=== PATIENT | female | born 1935 | race Caucasian/White ===

== ENCOUNTER 2017-04-18 12:08 | Inpatient (IN) | payer MEDICARE, BC ==
--- NOTE | 2017-04-18 12:49 | ER Document Report ---
ED Medical Screen (RME) - General Chief Complaint: Headache Stated Complaint: HEADACHE Time Seen by Provider: 04/18/17 12:34 Mode of Arrival: Wheelchair Information source: Patient, Relative Notes: This is a 81-year-old female with multiple medical problems which include hypertension and prior CVA in 2008 who presents for evaluation of a headache. She states that she developed a sudden dull, frontal headache at about 10:00 this morning while she was at home getting dressed. She was home with her caregiver at the time and she asked her caregiver for Tylenol for her headache. Her caregiver then took her blood pressure and noted it to be 240 systolic. At this point EMS was notified. Patient states that now she feels fine and her headache has resolved. Family states that the patient acted somewhat confused yesterday and then when her headache began today they were concerned that she may be having a TIA. She has a prior history of CVA and residual left-sided weakness from that. Also family states that she has had a left facial droop on and off since her stroke but that for the past 3 days it has been somewhat more pronounced. Patient denies any pain at this time she has no headache, chest pain, abdominal pain. I have greeted and performed a rapid initial assessment of this patient. A comprehensive ED assessment and evaluation of the patient, analysis of test results and completion of the medical decision making process will be conducted by additional ED providers. - Related Data Allergies/Adverse Reactions: erythromycin base [Erythromycin Base] Allergy (Severe, Verified 03/05/14 15:29) cortisone [Cortisone] Allergy (Intermediate, Verified 03/05/14 15:29) Sulfa (Sulfonamide Antibiotics) Allergy (Intermediate, Verified 03/05/14 15:29) diazepam [From Valium] Adverse Reaction (Unknown, Verified 03/05/14 15:29) Delirium Past Medical History - Past Medical History Cardiac Medical History: Reports: Hx Heart Attack - ? YEARS AGO, Hx Hypertension - CONTROLLED WITH MEDS Pulmonary Medical History: Denies: Hx Asthma Neurological Medical History: Reports: Hx Cerebrovascular Accident - 2009 LEFT SIDED WEAKNESS. Denies: Hx Seizures Renal/ Medical History: Denies: Hx Peritoneal Dialysis GI Medical History: Denies: Hx Hepatitis, Hx Hiatal Hernia, Hx Ulcer Infectious Medical History: Denies: Hx Hepatitis Past Surgical History: Reports: Hx Mastectomy - RT BREAST, SIDE IS RESTRICTED. Denies: Hx Hysterectomy, Hx Open Heart Surgery, Hx Pacemaker Physical Exam - Vital signs Vitals: Temp Pulse Resp BP Pulse Ox 98.8 F 59 L 20 210/96 H 97 04/18/17 12:15 04/18/17 12:15 04/18/17 12:15 04/18/17 12:15 04/18/17 12:15 - General General appearance: Appears well In distress: None Notes: Very pleasant and conversant elderly female - Neurological Cognition: Normal Orientation: AAOx4 Notes: Patient has left-sided motor weakness to the upper and lower extremities which she states is her baseline from her prior CVA. Cranial nerves are intact with exception of a slight left-sided facial droop which family states is been present for 3 days. Course - Vital Signs Vital signs: Temp Pulse Resp BP Pulse Ox 98.8 F 59 L 20 210/96 H 97 04/18/17 12:15 04/18/17 12:15 04/18/17 12:15 04/18/17 12:15 04/18/17 12:15
[2017-04-18 13:53] LABS: ABSOLUTE BASOPHILS # (AUTO) 0.1 10^3/uL (0.0-0.2); ABSOLUTE EOSINOPHILS # (AUTO) 0.3 10^3/uL (0.0-0.6); ABSOLUTE LYMPHOCYTES (AUTO) 1.8 10^3/uL (0.5-4.7); ABSOLUTE MONOCYTES (AUTO) 0.7 10^3/uL (0.1-1.4); ABSOLUTE NEUT (AUTO) 4.6 10^3/uL (1.7-8.2); BASOPHILS % (AUTO) 1.2 % (0-2); EOSINOPHILS % (AUTO) 3.8 % (0-6); HEMATOCRIT 42.1 % (36.0-47.0); HEMOGLOBIN 14.4 g/dL (12.0-15.5); HGB HCT DIFFERENCE 1.1; LYMPHOCYTES % (AUTO) 23.6 % (13-45); MEAN CORPUSCULAR HEMOGLOBIN 32.6 pg (27.0-33.4); MEAN CORPUSCULAR HGB CONC 34.3 g/dL (32.0-36.0); MEAN CORPUSCULAR VOLUME 95 fl (80-97); MONOCYTES % (AUTO) 9.8 % (3-13); RED BLOOD COUNT 4.43 10^6/uL (3.72-5.28); RED CELL DISTRIBUTION WIDTH 13.1 % (11.5-14.0); SEGMENTED NEUTROPHILS % (AUTO) 61.6 % (42-78); WHITE BLOOD COUNT 7.4 10^3/uL (4.0-10.5)
[2017-04-18 14:06] LABS: ALANINE AMINOTRANSFERASE 28 U/L (9-52); ALBUMIN 4.3 g/dL (3.5-5.0); ALKALINE PHOSPHATASE 55 U/L (38-126); ANION GAP 11 (5-19); ASPARTATE AMINO TRANSFERASE 22 U/L (14-36); BILIRUBIN,DIRECT 0.2 mg/dL (0.0-0.4); BILIRUBIN,TOTAL 0.5 mg/dL (0.2-1.3); BLOOD UREA NITROGEN 21 mg/dL (7-20); CALCIUM 9.9 mg/dL (8.4-10.2); CARBON DIOXIDE 26 mmol/L (22-30); CHLORIDE 103 mmol/L (98-107); CREATINE KINASE 54 U/L (30-135); GLUCOSE 99 mg/dL (75-110); POTASSIUM 4.3 mmol/L (3.6-5.0); SODIUM 140.4 mmol/L (137-145); TOTAL PROTEIN 7.8 g/dL (6.3-8.2)
[2017-04-18 14:18] LABS: CREATINE KINASE MB 0.91 ng/mL (<4.55); TROPONIN I < 0.012 ng/mL
[2017-04-18] MEDS ORDERED: HYDRALAZINE HCL INJ/PF 20 MG/1 ML SDV IV ONE (14:19)
--- NOTE | 2017-04-18 14:29 | RADIOLOGY REPORT (SQ) ---
EXAM DESCRIPTION: CT HEAD WITHOUT COMPLETED DATE/TIME: 04/18/2017 2:18 pm REASON FOR STUDY: Headache, HTN, prior CVA COMPARISON: None. TECHNIQUE: Axial images acquired through the brain without intravenous contrast. Images reviewed wi th bone, brain and subdural windows. Images stored on PACS. LIMITATIONS: None. FINDINGS: VENTRICLES: Normal size and contour. CEREBRUM: No masses. No hemorrhage. No midline shift. Encephalomalacia right cerebral hemisphere c ompatible with chronic right MCA territory infarction. No evidence for acute infarction. CEREBELLUM: No masses. No hemorrhage. No alteration of density. No evidence for acute infarction. EXTRAAXIAL SPACES: No fluid collections. No masses. ORBITS AND GLOBE: No intra- or extraconal masses. Normal contour of globe without masses. CALVARIUM: No fracture. PARANASAL SINUSES: No fluid or mucosal thickening. SOFT TISSUES: No mass or hematoma. OTHER: No other significant finding. IMPRESSION: LARGE CHRONIC RIGHT MCA TERRITORY INFARCTION. NO CT EVIDENCE OF ACUTE INTRACRANIAL PROC ESS. COMMENT: WAS EXAM PERFORMED WITHIN 24 HOURS UPON ARRIVAL TO FACILITY? Yes. TECHNICAL DOCUMENTATION: JOB ID: [id number]
--- NOTE | 2017-04-18 14:30 | ER Document Report ---
ED General - General Chief Complaint: Headache Stated Complaint: HEADACHE Time Seen by Provider: 04/18/17 12:34 Mode of Arrival: Wheelchair Information source: Patient, Relative Notes: 81 yr old female hx of cva in 2008 with elft sided deficits presents with complaints of headache that occured this morning lasting for 30 minutes with high blood pressure. pt was noted to be confused while having the headache, all symptoms have since resolved - HPI Onset: This morning Onset/Duration: Sudden Quality of pain: No pain Severity: Mild Pain Level: Denies Associated symptoms: Headache, Weakness Exacerbated by: Denies Relieved by: Denies Similar symptoms previously: Yes Recently seen / treated by doctor: Yes - Related Data Allergies/Adverse Reactions: erythromycin base [Erythromycin Base] Allergy (Severe, Verified 03/05/14 15:29) cortisone [Cortisone] Allergy (Intermediate, Verified 03/05/14 15:29) Sulfa (Sulfonamide Antibiotics) Allergy (Intermediate, Verified 03/05/14 15:29) diazepam [From Valium] Adverse Reaction (Unknown, Verified 03/05/14 15:29) Delirium Past Medical History - General Information source: Patient, Relative - Social History Smoking Status: Never Smoker Cigarette use (# per day): No Chew tobacco use (# tins/day): No Smoking Education Provided: No Family History: Reviewed & Not Pertinent Patient has suicidal ideation: No Patient has homicidal ideation: No - Past Medical History Cardiac Medical History: Reports: Hx Heart Attack - ? YEARS AGO, Hx Hypertension - CONTROLLED WITH MEDS Pulmonary Medical History: Denies: Hx Asthma Neurological Medical History: Reports: Hx Cerebrovascular Accident - 2009 LEFT SIDED WEAKNESS. Denies: Hx Seizures Renal/ Medical History: Denies: Hx Peritoneal Dialysis GI Medical History: Denies: Hx Hepatitis, Hx Hiatal Hernia, Hx Ulcer Infectious Medical History: Denies: Hx Hepatitis Past Surgical History: Reports: Hx Mastectomy - RT BREAST, SIDE IS RESTRICTED. Denies: Hx Hysterectomy, Hx Open Heart Surgery, Hx Pacemaker Review of Systems - Review of Systems Notes: PHYSICAL EXAMINATION: GENERAL: Well-appearing, well-nourished and in no acute distress. HEAD: Atraumatic, normocephalic. EYES: Pupils equal round and reactive to light, extraocular movements intact, conjunctiva are normal. ENT: Nares patent, oropharynx clear without exudates. Moist mucous membranes. NECK: Normal range of motion, supple without lymphadenopathy LUNGS: Breath sounds clear to auscultation bilaterally and equal. No wheezes rales or rhonchi. HEART: Regular rate and rhythm without murmurs ABDOMEN: Soft, nontender, nondistended abdomen. No guarding, no rebound. No masses appreciated. Female : deferred Musculoskeletal: Normal range of motion, no pitting or edema. No cyanosis. NEUROLOGICAL: Left facial arm deficits PSYCH: Normal mood, normal affect. SKIN: Warm, Dry, normal turgor, no rashes or lesions noted. Physical Exam - Vital signs Vitals: Temp Pulse Resp BP Pulse Ox 98.8 F 59 L 20 210/96 H 97 04/18/17 12:15 04/18/17 12:15 04/18/17 12:15 04/18/17 12:15 04/18/17 12:15 Course - Re-evaluation Re-evalutation: 04/18/17 14:30 Concern for CVA versus TIA patient is noted to be hypertensive, I will give her hydralazine as she is hypertensive 04/18/17 15:32 Patient's blood pressures improved significantly with medication 04/18/17 16:40 Patient at this time has no symptoms however given her confusion left facial droop left leg drop over the past 2 days I will admit her for an observation. In the IMCU - Vital Signs Vital signs: Temp Pulse Resp BP Pulse Ox 98.8 F 59 L 20 157/73 H 95 04/18/17 12:15 04/18/17 12:15 04/18/17 15:01 04/18/17 15:01 04/18/17 15:01 - Laboratory Result Diagrams: 04/18/17 13:35 04/18/17 13:35 Laboratory results interpreted by me: 04/18/17 13:35 BUN 21 H - Diagnostic Test Radiology reviewed: Image reviewed, Reports reviewed - EKG Interpretation by Me EKG shows normal: Sinus rhythm, [place], Intervals, QRS Complexes Critical Care Note - Critical Care Note Total time excluding time spent on procedures (mins): 31 Comments: 31 minutes of critical care time spent in direct contact evaluating and reevaluating the patient, treating symptoms, reviewing labs and studies and speaking with family and consultants excluding any procedures Discharge - Discharge Clinical Impression: Hypertensive emergency TIA (transient ischemic attack) Qualifiers: Transient cerebral ischemia type: unspecified Qualified Code(s): G45.9 - Transient cerebral ischemic attack, unspecified Condition: Serious Disposition: ADMITTED OBSERVATION Admitting Provider: Hospitalist Unit Admitted: IMCU
[2017-04-18] MEDS ORDERED: 1/2 NORMAL SALINE 1,000 ML IV PRN (16:44)
--- NOTE | 2017-04-18 17:43 | PDOC H&P ---
History of Present Illness Admission Date/PCP: 04/18/17 17:00 IBAN CASTELAN MD History of Present Illness: WARREN FARRIS is a 81 year old female with a history of hypertension and a stroke in 2008 involving the right middle cerebral artery distribution resulting in a chronic left hemiparesis. For the last few days the patient has felt poorly. She has developed an intermittent exaggerated left foot drop and perhaps an exaggerated left facial droop, worsening her pre-existent left hemiparesis. There was also some degree of increased confusion. Today she developed headache and came to the emergency department. By that time, the additional neurologic symptoms had cleared to baseline. She was found to have a blood pressure of 210/106. She was given hydralazine and to the blood pressure corrected to 157/83. Later it came back up to 183/70. CT brain shows the old right middle cerebral artery territory infarct but no acute changes. The patient will be admitted with a diagnosis of TIA for monitoring and for further evaluation and treatment. Past Medical History Cardiac Medical History: Reports: Myocardial Infarction - ? YEARS AGO, Hypertension - CONTROLLED WITH MEDS Pulmonary Medical History: Denies: Asthma Neurological Medical History: Reports: Ischemic CVA - in 2008, R MCA, resulting in L HMP Denies: Seizures Endocrine Medical History: Reports: Diabetes Mellitus Type 2 Malignancy Medical History: Reports: Breast Cancer GI Medical History: Denies: Hepatitis, Hiatal Hernia Hematology: Denies: Anemia, Sickle Cell Disease Past Surgical History Past Surgical History: Reports: Mastectomy - RT BREAST, SIDE IS RESTRICTED Denies: Amputation, Hysterectomy, Pacemaker Social History Smoking Status: Never Smoker Family History Family History: Reviewed & Not Pertinent Parental Family History Reviewed: No Children Family History Reviewed: No Sibling(s) Family History Reviewed.: No Medication/Allergy Home Medications: Amlodipine Besylate [Norvasc 10 mg Tablet] 10 mg PO DAILY 04/10/12 Aspirin [Aspirin 325 mg Tablet] 325 mg PO DAILY 04/10/12 Duloxetine HCl [Cymbalta 20 Mg Capsule.Dr] 60 mg PO DAILY 04/10/12 Metformin HCl [Glucophage Xr] 500 mg PO QAM 04/10/12 Metoprolol Succinate [Toprol-Xl 50 Mg Tab.Sr] 50 mg PO DAILY 04/10/12 Simvastatin [Zocor] 20 mg PO QHS 04/10/12 Solifenacin Succinate [Vesicare] 10 mg PO DAILY 04/10/12 Docusate Sodium [Colace 100 mg Capsule] 100 mg PO BID 03/07/14 Losartan Potassium [Cozaar 25 mg Tablet] 25 mg PO DAILY 03/07/14 Allergies/Adverse Reactions: erythromycin base [Erythromycin Base] Allergy (Severe, Verified 03/05/14 15:29) cortisone [Cortisone] Allergy (Intermediate, Verified 03/05/14 15:29) Sulfa (Sulfonamide Antibiotics) Allergy (Intermediate, Verified 03/05/14 15:29) diazepam [From Valium] Adverse Reaction (Unknown, Verified 03/05/14 15:29) Delirium Review of Systems Constitutional: PRESENT: headache(s). ABSENT: chills, fever(s), weight gain, weight loss Eyes: ABSENT: visual disturbances Ears: ABSENT: hearing changes Cardiovascular: ABSENT: chest pain, dyspnea on exertion, edema, orthropnea, palpitations Respiratory: ABSENT: cough, hemoptysis Gastrointestinal: ABSENT: abdominal pain, constipation, diarrhea, hematemesis, hematochezia, nausea, vomiting Genitourinary: ABSENT: dysuria, hematuria Musculoskeletal: ABSENT: joint swelling Integumentary: ABSENT: rash, wounds Neurological: PRESENT: abnormal gait, confusion, focal weakness. ABSENT: abnormal speech, dizziness, syncope Psychiatric: ABSENT: anxiety, depression, homidical ideation, suicidal ideation Endocrine: ABSENT: cold intolerance, heat intolerance, polydipsia, polyuria Hematologic/Lymphatic: ABSENT: easy bleeding, easy bruising Physical Exam Vital Signs: Temp Pulse Resp BP Pulse Ox 98.8 F 59 L 17 148/114 H 95 04/18/17 12:15 04/18/17 12:15 04/18/17 17:01 04/18/17 17:01 04/18/17 17:01 General appearance: PRESENT: no acute distress Head exam: PRESENT: atraumatic, normocephalic Eye exam: PRESENT: conjunctiva pink, EOMI, PERRLA. ABSENT: scleral icterus Ear exam: PRESENT: normal external ear exam Mouth exam: PRESENT: moist, tongue midline Neck exam: ABSENT: carotid bruit, JVD, lymphadenopathy, thyromegaly Respiratory exam: PRESENT: clear to auscultation jose enrique. ABSENT: rales, rhonchi, wheezes Cardiovascular exam: PRESENT: RRR. ABSENT: diastolic murmur, rubs, systolic murmur Pulses: PRESENT: normal dorsalis pedis pul Vascular exam: PRESENT: normal capillary refill GI/Abdominal exam: PRESENT: normal bowel sounds, soft. ABSENT: distended, guarding, mass, organolmegaly, rebound, tenderness Rectal exam: PRESENT: deferred Extremities exam: PRESENT: full ROM. ABSENT: calf tenderness, clubbing, pedal edema Neurological exam: PRESENT: alert, awake, oriented to person, oriented to place , oriented to time, oriented to situation, CN II-XII grossly intact, other - Left sided weakness, left facial droop. ABSENT: motor sensory deficit Psychiatric exam: PRESENT: appropriate affect, normal mood. ABSENT: homicidal ideation, suicidal ideation Skin exam: PRESENT: dry, intact, warm. ABSENT: cyanosis, rash Results Impressions: Head CT 04/18/17 12:44 IMPRESSION: LARGE CHRONIC RIGHT MCA TERRITORY INFARCTION. NO CT EVIDENCE OF ACUTE INTRACRANIAL PROCESS. Assessment & Plan - Diagnosis (1) TIA (transient ischemic attack) Qualifiers: Transient cerebral ischemia type: carotid artery syndrome (hemispheric) Qualified Code(s): G45.1 - Carotid artery syndrome (hemispheric) Is this a current diagnosis for this admission?: YesPlan: Her acute neurologic symptoms may be related to the accelerated hypertension. Will monitor the blood pressure and treat accordingly. Will systolic blood pressure would be in the 160-180 range. Will update her carotid studies and echocardiogram. Admit to telemetry to monitor her cardiac rhythm. (2) Hypertensive emergency Is this a current diagnosis for this admission?: YesPlan: As above. (3) Cerebral arteriosclerosis with history of previous stroke Is this a current diagnosis for this admission?: YesPlan: The current neurologic symptoms are in the same general distribution as her previous stroke implying an area of cerebral nichelle-infarct ischemia. (4) Left spastic hemiparesis Is this a current diagnosis for this admission?: YesPlan: The patient is ambulatory with a quad cane. She has had Botox injections to areas of spasticity. (5) DM2 (diabetes mellitus, type 2) Qualifiers: Diabetes mellitus complication status: with unspecified complications Diabetes mellitus care home insulin use: without marine oil terminal superintendent use Qualified Code(s): E11.8 - Type 2 diabetes mellitus with unspecified complications Is this a current diagnosis for this admission?: YesPlan: Continue current medications. Will monitor. Will place on insulin sliding scale. (6) Hyperlipidemia Qualifiers: Hyperlipidemia type: unspecified Qualified Code(s): E78.5 - Hyperlipidemia, unspecified Is this a current diagnosis for this admission?: YesPlan: Continue current Rx.
[2017-04-18] MEDS ORDERED: DEXTROSE 50%-WATER 25 GM/50 ML DISP.SYRIN IV PRN ×2 (17:44)
[2017-04-18] MEDS ORDERED: INSULIN LISPRO 100 UNIT/ML 3 ML VIAL SUBCUT PRN (17:44)
[2017-04-18] MEDS ORDERED: DEXTROSE 40% GEL 15 GM TUBE PO PRN ×2 (17:44)
[2017-04-18] MEDS ORDERED: GLUCAGON,HUMAN RECOMB 1 MG INJ IM PRN (17:44)
--- NOTE | 2017-04-18 21:13 | EKG REPORT ---
SEVERITY:- OTHERWISE NORMAL ECG - SINUS RHYTHM BORDERLINE LEFT AXIS DEVIATION : Confirmed by: Jaquan Charles 18-Apr-2017 21:11:20
[2017-04-18 22:41] LABS: AMORPHOUS SEDIMENT,URINE TRACE /HPF; APPEARANCE,URINE CLOUDY; BILIRUBIN,URINE NEGATIVE (NEGATIVE); GLUCOSE, URINE NEGATIVE (NEGATIVE); KETONES,URINE NEGATIVE (NEGATIVE); LEUKOCYTE ESTERASE,URINE TRACE (NEGATIVE); NITRITE,URINE POSITIVE (NEGATIVE); PROTEIN,URINE NEGATIVE (NEGATIVE); URINE SPECIFIC GRAVITY 1.008; UROBILINOGEN,URINE NEGATIVE mg/dL (<2.0)
[2017-04-18] MEDS ORDERED: CEFTRIAXONE 1 GM/D5W RTU 50 ML IV ONE (23:56)
[2017-04-19] MEDS: HYDRALAZINE HCL INJ/PF 20 MG/1 ML SDV IV PRN (00:03)
[2017-04-19] MEDS ORDERED: ACETAMINOPHEN 325 MG TABLET ONE (05:13)
[2017-04-19 05:27] LABS: ABSOLUTE BASOPHILS # (AUTO) 0.1 10^3/uL (0.0-0.2); ABSOLUTE EOSINOPHILS # (AUTO) 0.2 10^3/uL (0.0-0.6); ABSOLUTE LYMPHOCYTES (AUTO) 1.4 10^3/uL (0.5-4.7); ABSOLUTE MONOCYTES (AUTO) 0.9 10^3/uL (0.1-1.4); EOSINOPHILS % (AUTO) 3.2 % (0-6); HEMOGLOBIN 13.5 g/dL (12.0-15.5); HGB HCT DIFFERENCE 0.5; LYMPHOCYTES % (AUTO) 18.9 % (13-45); MEAN CORPUSCULAR HEMOGLOBIN 32.1 pg (27.0-33.4); MEAN CORPUSCULAR HGB CONC 33.7 g/dL (32.0-36.0); MEAN CORPUSCULAR VOLUME 95 fl (80-97); MONOCYTES % (AUTO) 11.6 % (3-13); RED BLOOD COUNT 4.21 10^6/uL (3.72-5.28); RED CELL DISTRIBUTION WIDTH 13.1 % (11.5-14.0); SEGMENTED NEUTROPHILS % (AUTO) 65.3 % (42-78); WHITE BLOOD COUNT 7.6 10^3/uL (4.0-10.5)
[2017-04-19 05:48] LABS: ANION GAP 11 (5-19); BLOOD UREA NITROGEN 18 mg/dL (7-20); CALCIUM 9.2 mg/dL (8.4-10.2); CARBON DIOXIDE 23 mmol/L (22-30); CHLORIDE 104 mmol/L (98-107); CREATININE RESULT 0.72 mg/dL (0.52-1.25); GLUCOSE 130 mg/dL (75-110); POTASSIUM 3.8 mmol/L (3.6-5.0)
[2017-04-19] MEDS ORDERED: METFORMIN HCL 500 MG TABLET PO ONE (10:00)
[2017-04-19] MEDS ORDERED: LOSARTAN POTASSIUM 25 MG TABLET PO SCH ×2 (10:00→13:53)
[2017-04-19] MEDS ORDERED: AMLODIPINE BESYLATE 10 MG TABLET PO SCH (10:00)
[2017-04-19] MEDS ORDERED: (PENDING PHARMACY ID) (Solifenacin Succinate [Vesicare] 10 MG) PO SCH (10:00)
[2017-04-19] MEDS ORDERED: METOPROLOL SUCCINATE 50 MG TAB.SR.24H PO SCH (10:00)
[2017-04-19] MEDS ORDERED: DULOXETINE HCL 30 MG CAPSULE.DR PO SCH (10:00)
[2017-04-19] MEDS: DOCUSATE SODIUM 100 MG CAPSULE PO SCH ×2 (10:09→18:09)
[2017-04-19] MEDS: ASPIRIN 325 MG TABLET PO SCH (10:11)
[2017-04-19] MEDS: ENOXAPARIN SODIUM INJ 40 MG/0.4 ML DISP.SYRIN SUBCUT SCH (10:12)
[2017-04-19] MEDS: ACETAMINOPHEN 325 MG TABLET PO PRN ×2 (10:31→20:02)
--- NOTE | 2017-04-19 13:09 | RADIOLOGY REPORT (SQ) ---
EXAM DESCRIPTION: MRI HEAD WITHOUT COMPLETED DATE/TIME: 04/19/2017 12:45 pm REASON FOR STUDY: acute neurologic syndrome COMPARISON: CT brain 04/18/2017 Carotid Doppler 04/19/2017 TECHNIQUE: Multiplanar imaging includes non-contrasted T1, T2, FLAIR, and diffusion with ADC map seq uences. Images stored on PACS. LIMITATIONS: None. FINDINGS: ANATOMY: No developmental anomalies. Normal vascular flow voids. Pituitary fossa normal. CSF SPACES: Normal in size and contour. No hemorrhage. CEREBRUM: Diffuse encephalomalacia throughout the right hemisphere from old right MCA infarction. Re lative sparing of the parasagittal frontal and parietal lobes. On the left side, spotty chronic whit e matter disease is present in the frontal white matter, parietal white matter and basal ganglia. No MR evidence of acute ischemic change on diffusion-weighted images. No acute intracranial hemorrha ge. There is volume loss in the right hemisphere with enlargement the right lateral ventricle and sl ight [id number] shift, stable. POSTERIOR FOSSA: Old lacunar infarcts in the right and left inferior cerebellar hemispheres. Moderat e small vessel ischemic change in the mid dale. No MR evidence of acute posterior fossa infarct, or acute hemorrhage. No mass effect. DIFFUSION IMAGING: Negative for acute or sub-acute infarction. ORBITS: No masses. Globes post cataract surgery. PARANASAL SINUSES: No fluid levels. Mucosa normal. OTHER: No other significant finding. IMPRESSION: No acute findings. Extensive encephalomalacia right hemisphere from old infarct. TECHNICAL DOCUMENTATION: JOB ID: [id number] [email or web address]- All Rights Reserved
--- NOTE | 2017-04-19 15:23 | PDOC PROGRESS REPORT ---
Subjective Progress Note for:: 04/19/17 Subjective:: Patient has no new complaints. Previous new onset weakness has resolved. She denies fever, chills, headache, chest pain, abdominal pain, nausea, vomiting. Physical Exam Vital Signs: Temp Pulse Resp BP Pulse Ox 99.0 F 62 22 H 177/65 H 98 04/19/17 13:48 04/19/17 13:08 04/19/17 12:05 04/19/17 13:08 04/19/17 13:08 Intake & Output 04/18/17 04/19/17 04/20/17 06:59 06:59 06:59 Intake Total 754 Balance 754 Weight 67.9 kg GENERAL: No acute distress HEENT: Conjunctiva clear, nonicteric, moist mucous membranes, no JVD, midline trachea RESPIRATORY: Clear to auscultation bilaterally, no wheezes, no rhonchi CARDIAC: Regular rate and rhythm, no murmurs/gallops/rubs ABDOMEN: Soft, nondistended, nontender, positive bowel sounds, no rebound, no guarding EXTREMETIES: No edema, cyanosis, clubbing NEUROLOGIC: Alert, oriented to person/place/time, CN's grossly intact, left hemiparesis SKIN: No rash, wounds PSYCH: Normal mood, normal affect Results Laboratory Results: 04/19/17 04:29 04/19/17 04:29 04/18/17 04/19/17 04/19/17 20:45 04:29 04:29 WBC 7.6 RBC 4.21 Hgb 13.5 Hct 40.0 MCV 95 MCH 32.1 MCHC 33.7 RDW 13.1 Plt Count 266 Seg Neutrophils % 65.3 Lymphocytes % 18.9 Monocytes % 11.6 Eosinophils % 3.2 Basophils % 1.0 Absolute Neutrophils 5.0 Absolute Lymphocytes 1.4 Absolute Monocytes 0.9 Absolute Eosinophils 0.2 Absolute Basophils 0.1 Sodium 138.0 Potassium 3.8 Chloride 104 Carbon Dioxide 23 Anion Gap 11 BUN 18 Creatinine 0.72 Est GFR ( Amer) > 60 Est GFR (Non-Af Amer) > 60 Glucose 130 H Calcium 9.2 Urine Color YELLOW Urine Appearance CLOUDY Urine pH 7.0 Ur Specific [place] 1.008 Urine Protein NEGATIVE Urine Glucose (UA) NEGATIVE Urine Ketones NEGATIVE Urine Blood NEGATIVE Urine Nitrite POSITIVE H Ur Leukocyte Esterase TRACE H Urine WBC (Auto) 26 Urine RBC (Auto) 0 Impressions: Head CT 04/18/17 12:44 IMPRESSION: LARGE CHRONIC RIGHT MCA TERRITORY INFARCTION. NO CT EVIDENCE OF ACUTE INTRACRANIAL PROCESS. Head MRI 04/19/17 08:42 IMPRESSION: No acute findings. Extensive encephalomalacia right hemisphere from old infarct. Assessment & Plan - Diagnosis (1) TIA (transient ischemic attack) Qualifiers: Transient cerebral ischemia type: carotid artery syndrome (hemispheric) Qualified Code(s): G45.1 - Carotid artery syndrome (hemispheric) Is this a current diagnosis for this admission?: YesPlan: Increase ASA to 325mg daily. Continue Zocor 20mg po daily. MRI with old CVA, no acute process. Carotid dopplers, echo-pending. (2) Hypertensive emergency Is this a current diagnosis for this admission?: YesPlan: Increase Cozaar. Continue metoprolol. (3) DM2 (diabetes mellitus, type 2) Qualifiers: Diabetes mellitus complication status: with unspecified complications Diabetes mellitus residential insulin use: without residential use Qualified Code(s): E11.8 - Type 2 diabetes mellitus with unspecified complications; Z79.4 - retirement (current) use of insulin Is this a current diagnosis for this admission?: Yes (4) Cerebral arteriosclerosis with history of previous stroke Is this a current diagnosis for this admission?: YesPlan: Old left hemiparesis. Followed by Dr. Carranza of neurology as outpatient. (5) Hyperlipidemia Qualifiers: Hyperlipidemia type: unspecified Qualified Code(s): E78.5 - Hyperlipidemia, unspecified Is this a current diagnosis for this admission?: Yes - Time Time Spent with patient: 35 or more minutes Anticipated discharge: Home Within: within 24 hours
[2017-04-19 15:47] LABS: CHOLESTEROL 117.49 mg/dL (0-200); Direct HDL 32 mg/dL (>40); TRIGLYCERIDES 141 mg/dL (<150)
[2017-04-19 15:58] LABS: DIRECT LDL 48 mg/dL (<100)
[2017-04-19] MEDS: METFORMIN HCL 500 MG TABLET PO SCH (18:10)
[2017-04-19 20:24] LABS: APPEARANCE,URINE SLIGHTLY-CLOUDY; BILIRUBIN,URINE NEGATIVE (NEGATIVE); GLUCOSE, URINE NEGATIVE (NEGATIVE); KETONES,URINE NEGATIVE (NEGATIVE); LEUKOCYTE ESTERASE,URINE LARGE (NEGATIVE); NITRITE,URINE NEGATIVE (NEGATIVE); PROTEIN,URINE NEGATIVE (NEGATIVE); UROBILINOGEN,URINE NEGATIVE mg/dL (<2.0)
[2017-04-19] MEDS: METOPROLOL SUCCINATE 25 MG TAB.SR.24H PO SCH (21:15)
[2017-04-19] MEDS: SIMVASTATIN 10 MG TABLET PO SCH (21:16)
[2017-04-19] MEDS: CEFTRIAXONE 1 GM/D5W RTU 1 GM/50 ML RTUPB IV SCH (21:16)
[2017-04-20 04:49] LABS: ABSOLUTE BASOPHILS # (AUTO) 0.1 10^3/uL (0.0-0.2); ABSOLUTE EOSINOPHILS # (AUTO) 0.3 10^3/uL (0.0-0.6); ABSOLUTE LYMPHOCYTES (AUTO) 1.6 10^3/uL (0.5-4.7); ABSOLUTE MONOCYTES (AUTO) 0.9 10^3/uL (0.1-1.4); ABSOLUTE NEUT (AUTO) 3.2 10^3/uL (1.7-8.2); BASOPHILS % (AUTO) 1.2 % (0-2); EOSINOPHILS % (AUTO) 5.1 % (0-6); HEMOGLOBIN 13.3 g/dL (12.0-15.5); HGB HCT DIFFERENCE -0.1; LYMPHOCYTES % (AUTO) 26.6 % (13-45); MEAN CORPUSCULAR HEMOGLOBIN 31.9 pg (27.0-33.4); MEAN CORPUSCULAR HGB CONC 33.3 g/dL (32.0-36.0); MEAN CORPUSCULAR VOLUME 96 fl (80-97); MONOCYTES % (AUTO) 14.8 % (3-13); RED BLOOD COUNT 4.18 10^6/uL (3.72-5.28); RED CELL DISTRIBUTION WIDTH 13.4 % (11.5-14.0); SEGMENTED NEUTROPHILS % (AUTO) 52.3 % (42-78); WHITE BLOOD COUNT 6.1 10^3/uL (4.0-10.5)
[2017-04-20 05:07] LABS: ANION GAP 11 (5-19); BLOOD UREA NITROGEN 27 mg/dL (7-20); CALCIUM 9.2 mg/dL (8.4-10.2); CARBON DIOXIDE 23 mmol/L (22-30); CHLORIDE 106 mmol/L (98-107); CREATININE RESULT 0.97 mg/dL (0.52-1.25); GLUCOSE 112 mg/dL (75-110); POTASSIUM 4.6 mmol/L (3.6-5.0); SODIUM 140.2 mmol/L (137-145)
[2017-04-20] MEDS: METFORMIN HCL 500 MG TABLET PO SCH ×2 (07:25→17:02)
[2017-04-20] MEDS: ENOXAPARIN SODIUM INJ 40 MG/0.4 ML DISP.SYRIN SUBCUT SCH (07:26)
[2017-04-20] MEDS ORDERED: (PENDING PHARMACY ID) (Metformin Hcl [Glucophage Xr 500 Mg Tablet] 500 MG) PO SCH (08:00)
--- NOTE | 2017-04-20 08:25 | RADIOLOGY REPORT (SQ) ---
EXAM DESCRIPTION: CAROTID DOPPLER COMPLETED DATE/TIME: 04/19/2017 9:46 am REASON FOR STUDY: TIA COMPARISON: None. TECHNIQUE: Grayscale ultrasound, Doppler velocity and spectra, and color Doppler images acquired of the extra-cranial carotid and vertebral arteries. Images stored on PACS. LIMITATIONS: None. FINDINGS: RIGHT CAROTID CCA Velocities: Within normal limits. ICA Velocities Peak systolic 0.62 m/s. End diastolic 0.14 m/s. Proximal ICA/CCA peak systolic ratio 1.03. Heterogenous irregular plaque at the carotid bulb. LEFT CAROTID CCA Velocities: Within normal limits. ICA Velocities Peak systolic 0.93 m/s. End diastolic 0.27 m/s. Proximal ICA/CCA peak systolic ratio 1.3. Heterogenous irregular plaque with shadowing at the carotid bulb. VERTEBRAL ARTERIES: Antegrade flow. Normal waveforms. SUBCLAVIAN ARTERIES: No finding. OTHER: No other significant finding. IMPRESSION: BILATERAL PLAQUE. NO HEMODYNAMICALLY SIGNIFICANT STENOSIS. COMMENT: Quality ID #[id number]: Velocity criteria are extrapolated from the diameter data as defined by t he Society of Radiologists in Ultrasound Consensus Conference. Radiology 2003: 229; 340-346. TECHNICAL DOCUMENTATION: JOB ID: [id number] [email or web address]- All Rights Reserved
--- NOTE | 2017-04-20 08:42 | CAROTID DOPPLER PRO FEE REPORT ---
CAROTID DUPLEX DOPPLER REPORT PATIENT NAME: WARREN FARRIS ROOM#: [id number] DATE OF STUDY: 04/19/2017 DATE OF : 1935 REFERRING MD: LAMBERT SANTIAGO M.D. ORDER NO: [id number] TECHNOLOGIST: Goran LEBRON INDICATION: TIA STUDY: The color carotid duplex scan was performed with real time images and real time Doppler velocity measurements. Real time images indicated mild bilateral plaque formation with calcifications seen in the left internal carotid shadowing. Doppler velocity measurements were as follows: MEASUREMENT: RIGHT LEFT CCA PSV (prox/mid) 64 cm/sec 91 cm/sec CCA PSV (distal) 60 cm/sec 69 cm/sec CCA EDV (prox/mid) 11 cm/sec 23 cm/sec CCA EDV (distal) 10 cm/sec 20 cm/sec ICA PSV (proximal) 62 cm/sec 93 cm/sec ICA PSV (distal) 44 cm/sec 89 cm/sec ICA EDV (proximal) 14 cm/sec 27 cm/sec ICA EDV (distal) 11 cm/sec 27 cm/sec ECA 147 cm/sec 110 cm/sec ICA/CCA RATIO: 1.03 on the right and 1.3 on the left. Vertebrals are patent. Flow is cephalad. FINAL IMPRESSION: MILD BILATERAL PLAQUE FORMATION, LESS THAN 50% STENOTIC FLOW. INTERPRETING PHYSICIAN: CAROL AYOUB M.D. /: JULIO TT: [id number] ID: [id number] /: [id number] TD: 0816 JOB: [id number] cc:Anu VILLALOBOS M.D. >
[2017-04-20] MEDS: AMLODIPINE BESYLATE 5 MG TABLET PO SCH (09:10)
[2017-04-20] MEDS: METOPROLOL SUCCINATE 25 MG TAB.SR.24H PO SCH ×2 (09:10→23:17)
[2017-04-20] MEDS: ASPIRIN 325 MG TABLET PO SCH (09:10)
[2017-04-20] MEDS: DOCUSATE SODIUM 100 MG CAPSULE PO SCH ×2 (09:10→17:02)
[2017-04-20] MEDS: CHOLECALCIFEROL (D3) 1,000 UNIT TABLET PO SCH (09:10)
--- NOTE | 2017-04-20 09:39 | XCELERA REPORT ---
[address] [address] Transthoracic Echocardiogram Report Name: WARREN FARRIS Age: 81 yrs Gender: Female : 1935 Patient Status: Inpatient Patient Location: 3W\S\315\S\A Study Date: 04/19/2017 09:02 AM Height: 63 in Weight: 156 lb BSA: 1.7 m2 Procedure: A complete two-dimensional transthoracic echocardiogram was performed (2D, M-mode, spectral and color flow Doppler). The study was technically difficult with many images being suboptimal in quality. Reason For Study: TIA Ordering Physician: LAMBERT SANTIAGO Performed By: Zakia Simmons Interpretation Summary The left ventricular ejection fraction is normal. There is mild concentric left ventricular hypertrophy. Doppler measurements suggest pseudonormalized left ventricular relaxation, which is associated with grade II/IV or mild to moderate diastolic dysfunction The left ventricle is grossly normal size. Wall motion cannot be accurately commented on, but no definite regional wall motion abnormalities noted. The right ventricular systolic function is normal. The right atrium is normal in size The left atrial size is normal. There is a moderate amount of mitral regurgitation There is no mitral valve stenosis. There is a trace amount of aortic regurgitation There is no aortic valve stenosis There is a trace to mild amount of tricuspid regurgitation Right ventricular systolic pressure is estimated to be elevated at 30- 40mmHg. Minimal pericardial effusion. MMode/2D Measurements \T\ Calculations RVDd: 2.2 cm LVIDd: 3.6 cm FS: 44.2 % Ao root diam: 3.1 cm IVSd: 1.2 cm LVIDs: 2.0 cm EDV(Teich): 55.9 ml LVPWd: 1.2 cm ESV(Teich): 13.2 ml Ao root area: 7.4 cm2 EF(Teich): 76.4 % LA dimension: 3.5 cm LVOT diam: 2.0 cm LVOT area: 3.3 cm2 Doppler Measurements \T\ Calculations MV E max daniela: MV P1/2t max daniela: Ao V2 max: LV V1 max P.4 cm/sec 90.5 cm/sec 124.3 cm/sec 3.9 mmHg MV A max daniela: MV P1/2t: 64.9 msec Ao max PG: LV V1 max: 194.0 cm/sec MVA(P1/2t): 3.4 cm2 6.2 mmHg 99.1 cm/sec MV E/A: 0.46 MV dec slope: WILLIAM(V,D): 2.6 cm2 408.3 cm/sec2 PA V2 max: TR max daniela: 105.1 cm/sec 279.1 cm/sec PA max P.4 mmHgTR max P.2 mmHg Left Ventricle The left ventricle is grossly normal size. There is mild concentric left ventricular hypertrophy. The left ventricular ejection fraction is normal. Doppler measurements suggest pseudonormalized left ventricular relaxation, which is associated with grade II/IV or mild to moderate diastolic dysfunction. Wall motion cannot be accurately commented on, but no definite regional wall motion abnormalities noted. Right Ventricle The right ventricle is normal in size, thickness and function. There is normal right ventricular wall thickness. The right ventricular systolic function is normal. Atria The right atrium is normal in size. The left atrial size is normal. Interarterial septum not well visualized and not well dopplered. Cannot comment on ASD/PFO presence. Mitral Valve There is mild mitral leaflet calcification. There is no mitral valve stenosis. There is a moderate amount of mitral regurgitation. Aortic Valve The aortic valve is not well visualized secondary to technical limitations. The aortic valve is mildly calcified. There is no aortic valve stenosis. There is a trace amount of aortic regurgitation. Tricuspid Valve The tricuspid valve is not well visualized, but is grossly normal. There is no tricuspid stenosis. There is a trace to mild amount of tricuspid regurgitation. There is mild pulmonary hypertension by echo. Right ventricular systolic pressure is estimated to be elevated at 30-40mmHg. Pulmonic Valve The pulmonic valve is not well visualized. Great Vessels The aortic root is not well visualized but is probably normal size. The inferior vena cava appeared normal and decreased > 50% with respiration (RAP 5-10 mmHg). Effusions Minimal pericardial effusion. : LAMBERT SANTIAGO > Jaquan Charles
[2017-04-20] MEDS ORDERED: LOSARTAN POTASSIUM 50 MG TABLET PO SCH (10:00)
[2017-04-20] MEDS ORDERED: (PENDING PHARMACY ID) (Cholecalciferol (Vitamin D3) [D3-2000] 2,000 UNIT) PO SCH (10:00)
--- NOTE | 2017-04-20 10:29 | PDOC PROGRESS REPORT ---
Subjective Progress Note for:: 04/20/17 Subjective:: Patient has no new complaints. Previous new onset weakness has resolved. She denies fever, chills, headache, chest pain, abdominal pain, nausea, vomiting. Physical Exam Vital Signs: Temp Pulse Resp BP Pulse Ox 97.6 F 59 L 18 180/76 H 98 04/20/17 07:06 04/20/17 07:06 04/20/17 07:06 04/20/17 07:06 04/20/17 07:06 Intake & Output 04/19/17 04/20/17 04/21/17 06:59 06:59 06:59 Intake Total 754 1378 Output Total 550 Balance 754 828 Weight 67.9 kg 66.5 kg GENERAL: No acute distress HEENT: Conjunctiva clear, nonicteric, moist mucous membranes, no JVD, midline trachea RESPIRATORY: Clear to auscultation bilaterally, no wheezes, no rhonchi CARDIAC: Regular rate and rhythm, no murmurs/gallops/rubs ABDOMEN: Soft, nondistended, nontender, positive bowel sounds, no rebound, no guarding EXTREMETIES: No edema, cyanosis, clubbing NEUROLOGIC: Alert, oriented to person/place/time, CN's grossly intact, left hemiparesis SKIN: No rash, wounds PSYCH: Normal mood, normal affect Results Laboratory Results: 04/20/17 04:17 04/20/17 04:17 04/19/17 04/19/17 04/20/17 04:29 20:00 04:17 WBC 6.1 RBC 4.18 Hgb 13.3 Hct 40.0 MCV 96 MCH 31.9 MCHC 33.3 RDW 13.4 Plt Count 246 Seg Neutrophils % 52.3 Lymphocytes % 26.6 Monocytes % 14.8 H Eosinophils % 5.1 Basophils % 1.2 Absolute Neutrophils 3.2 Absolute Lymphocytes 1.6 Absolute Monocytes 0.9 Absolute Eosinophils 0.3 Absolute Basophils 0.1 Sodium Potassium Chloride Carbon Dioxide Anion Gap BUN Creatinine Est GFR ( Amer) Est GFR (Non-Af Amer) Glucose Calcium Triglycerides 141 Cholesterol 117.49 LDL Cholesterol Direct 48 VLDL Cholesterol 28.0 HDL Cholesterol 32 L Urine Color YELLOW Urine Appearance SLIGHTLY-CLOUDY Urine pH 6.0 Ur Specific [place] 1.010 Urine Protein NEGATIVE Urine Glucose (UA) NEGATIVE Urine Ketones NEGATIVE Urine Blood NEGATIVE Urine Nitrite NEGATIVE Ur Leukocyte Esterase LARGE H Urine WBC (Auto) 82 Urine RBC (Auto) 1 04/20/17 04:17 WBC RBC Hgb Hct MCV MCH MCHC RDW Plt Count Seg Neutrophils % Lymphocytes % Monocytes % Eosinophils % Basophils % Absolute Neutrophils Absolute Lymphocytes Absolute Monocytes Absolute Eosinophils Absolute Basophils Sodium 140.2 Potassium 4.6 Chloride 106 Carbon Dioxide 23 Anion Gap 11 BUN 27 H Creatinine 0.97 Est GFR ( Amer) > 60 Est GFR (Non-Af Amer) 55 L Glucose 112 H Calcium 9.2 Triglycerides Cholesterol LDL Cholesterol Direct VLDL Cholesterol HDL Cholesterol Urine Color Urine Appearance Urine pH Ur Specific [place] Urine Protein Urine Glucose (UA) Urine Ketones Urine Blood Urine Nitrite Ur Leukocyte Esterase Urine WBC (Auto) Urine RBC (Auto) Impressions: Head CT 04/18/17 12:44 IMPRESSION: LARGE CHRONIC RIGHT MCA TERRITORY INFARCTION. NO CT EVIDENCE OF ACUTE INTRACRANIAL PROCESS. Carotid Doppler Study 04/19/17 00:00 IMPRESSION: BILATERAL PLAQUE. NO HEMODYNAMICALLY SIGNIFICANT STENOSIS. Head MRI 04/19/17 08:42 IMPRESSION: No acute findings. Extensive encephalomalacia right hemisphere from old infarct. Assessment & Plan - Diagnosis (1) TIA (transient ischemic attack) Qualifiers: Transient cerebral ischemia type: carotid artery syndrome (hemispheric) Qualified Code(s): G45.1 - Carotid artery syndrome (hemispheric) Is this a current diagnosis for this admission?: YesPlan: Increased ASA to 325mg daily. Continue Zocor 20mg po daily. MRI with old CVA, no acute process. Carotid dopplers with no significant stenosis. Echo-grade 2/4 diastolic dysfunction, no significant valvular disease, normal EF , recommend mobile telemetry monitoring to rule out atrial fibrillation. (2) Hypertensive emergency Is this a current diagnosis for this admission?: YesPlan: Blood pressure remains uncontrolled on metoprolol and Cozaar. Add Norvasc 5 mg daily. (3) DM2 (diabetes mellitus, type 2) Qualifiers: Diabetes mellitus complication status: with unspecified complications Diabetes mellitus oil heaterman insulin use: without retirement use Qualified Code(s): E11.8 - Type 2 diabetes mellitus with unspecified complications; Z79.4 - half-way (current) use of insulin Is this a current diagnosis for this admission?: Yes (4) Cerebral arteriosclerosis with history of previous stroke Is this a current diagnosis for this admission?: YesPlan: Old left hemiparesis. Followed by Dr. Carranza of neurology as outpatient. (5) Hyperlipidemia Qualifiers: Hyperlipidemia type: unspecified Qualified Code(s): E78.5 - Hyperlipidemia, unspecified Is this a current diagnosis for this admission?: Yes - Time Time Spent with patient: 35 or more minutes Anticipated discharge: Home Within: within 24 hours
--- NOTE | 2017-04-20 10:35 | EKG REPORT ---
SEVERITY:- OTHERWISE NORMAL ECG - SINUS RHYTHM BORDERLINE LEFT AXIS DEVIATION : Confirmed by: Jaquan Charles 20-Apr-2017 10:35:07
[2017-04-20] MEDS: HYDRALAZINE HCL INJ/PF 20 MG/1 ML SDV IV PRN (20:07)
[2017-04-20] MEDS: ACETAMINOPHEN 325 MG TABLET PO PRN (20:34)
[2017-04-20] MEDS: TOLTERODINE TARTRATE 1 MG TABLET PO SCH (23:16)
[2017-04-20] MEDS: SIMVASTATIN 10 MG TABLET PO SCH (23:17)
[2017-04-20] MEDS: CEFTRIAXONE 1 GM/D5W RTU 1 GM/50 ML RTUPB IV SCH (23:18)
[2017-04-21] MEDS: ACETAMINOPHEN 325 MG TABLET PO PRN ×4 (00:29→22:29)
[2017-04-21 04:57] LABS: ABSOLUTE BASOPHILS # (AUTO) 0.1 10^3/uL (0.0-0.2); ABSOLUTE EOSINOPHILS # (AUTO) 0.4 10^3/uL (0.0-0.6); ABSOLUTE LYMPHOCYTES (AUTO) 1.5 10^3/uL (0.5-4.7); ABSOLUTE MONOCYTES (AUTO) 0.9 10^3/uL (0.1-1.4); ABSOLUTE NEUT (AUTO) 3.9 10^3/uL (1.7-8.2); BASOPHILS % (AUTO) 0.9 % (0-2); EOSINOPHILS % (AUTO) 5.8 % (0-6); HEMATOCRIT 40.8 % (36.0-47.0); HEMOGLOBIN 13.6 g/dL (12.0-15.5); LYMPHOCYTES % (AUTO) 22.3 % (13-45); MEAN CORPUSCULAR HEMOGLOBIN 31.9 pg (27.0-33.4); MEAN CORPUSCULAR HGB CONC 33.3 g/dL (32.0-36.0); MEAN CORPUSCULAR VOLUME 96 fl (80-97); MONOCYTES % (AUTO) 12.7 % (3-13); RED BLOOD COUNT 4.24 10^6/uL (3.72-5.28); RED CELL DISTRIBUTION WIDTH 13.2 % (11.5-14.0); SEGMENTED NEUTROPHILS % (AUTO) 58.3 % (42-78); WHITE BLOOD COUNT 6.7 10^3/uL (4.0-10.5)
[2017-04-21 05:25] LABS: ANION GAP 15 (5-19); BLOOD UREA NITROGEN 25 mg/dL (7-20); CALCIUM 9.1 mg/dL (8.4-10.2); CARBON DIOXIDE 21 mmol/L (22-30); CHLORIDE 106 mmol/L (98-107); CREATININE RESULT 0.77 mg/dL (0.52-1.25); GLUCOSE 106 mg/dL (75-110); POTASSIUM 4.1 mmol/L (3.6-5.0)
[2017-04-21] MEDS: METFORMIN HCL 500 MG TABLET PO SCH ×2 (07:53→17:42)
[2017-04-21] MEDS: ENOXAPARIN SODIUM INJ 40 MG/0.4 ML DISP.SYRIN SUBCUT SCH (07:54)
[2017-04-21] MEDS: HYDRALAZINE HCL INJ/PF 20 MG/1 ML SDV IV PRN ×2 (07:54→20:23)
[2017-04-21] MEDS: ASPIRIN 325 MG TABLET PO SCH (09:10)
[2017-04-21] MEDS: CHOLECALCIFEROL (D3) 1,000 UNIT TABLET PO SCH (09:10)
[2017-04-21] MEDS: TOLTERODINE TARTRATE 1 MG TABLET PO SCH ×2 (09:10→23:21)
[2017-04-21] MEDS: LOSARTAN POTASSIUM 50 MG TABLET PO SCH ×2 (09:11→23:20)
[2017-04-21] MEDS: AMLODIPINE BESYLATE 5 MG TABLET PO SCH (09:11)
[2017-04-21] MEDS: DOCUSATE SODIUM 100 MG CAPSULE PO SCH ×2 (09:11→17:42)
[2017-04-21] MEDS: METOPROLOL SUCCINATE 25 MG TAB.SR.24H PO SCH ×2 (09:11→23:20)
[2017-04-21] MEDS ORDERED: AMLODIPINE BESYLATE 5 MG TABLET PO ONE (10:15)
--- NOTE | 2017-04-21 10:21 | PDOC PROGRESS REPORT ---
Subjective Progress Note for:: 04/21/17 Subjective:: Patient has continued elevated blood pressure readings. She denies any new weakness or numbness. She denies headache. I have talked to her about having renal artery ultrasound to rule out renal artery stenosis. She tells me that she was told years ago that she had some blockage going to her kidney and that she may need a stent placed eventually. Physical Exam Vital Signs: Temp Pulse Resp BP Pulse Ox 97.8 F 60 12 202/76 H 99 04/21/17 07:02 04/21/17 07:02 04/21/17 07:02 04/21/17 07:02 04/21/17 07:02 Intake & Output 04/20/17 04/21/17 04/22/17 06:59 06:59 06:59 Intake Total 1378 1459 Output Total 550 400 Balance 828 1059 Weight 66.5 kg 64.7 kg GENERAL: No acute distress HEENT: Conjunctiva clear, nonicteric, moist mucous membranes, no JVD, midline trachea RESPIRATORY: Clear to auscultation bilaterally, no wheezes, no rhonchi CARDIAC: Regular rate and rhythm, no murmurs/gallops/rubs ABDOMEN: Soft, nondistended, nontender, positive bowel sounds, no rebound, no guarding EXTREMETIES: No edema, cyanosis, clubbing NEUROLOGIC: Alert, oriented to person/place/time, CN's grossly intact, left hemiparesis SKIN: No rash, wounds PSYCH: Normal mood, normal affect Results Laboratory Results: 04/21/17 04:30 04/21/17 04:30 04/21/17 04/21/17 04:30 04:30 WBC 6.7 RBC 4.24 Hgb 13.6 Hct 40.8 MCV 96 MCH 31.9 MCHC 33.3 RDW 13.2 Plt Count 257 Seg Neutrophils % 58.3 Lymphocytes % 22.3 Monocytes % 12.7 Eosinophils % 5.8 Basophils % 0.9 Absolute Neutrophils 3.9 Absolute Lymphocytes 1.5 Absolute Monocytes 0.9 Absolute Eosinophils 0.4 Absolute Basophils 0.1 Sodium 142.0 Potassium 4.1 Chloride 106 Carbon Dioxide 21 L Anion Gap 15 BUN 25 H Creatinine 0.77 Est GFR ( Amer) > 60 Est GFR (Non-Af Amer) > 60 Glucose 106 Calcium 9.1 Impressions: Head CT 04/18/17 12:44 IMPRESSION: LARGE CHRONIC RIGHT MCA TERRITORY INFARCTION. NO CT EVIDENCE OF ACUTE INTRACRANIAL PROCESS. Carotid Doppler Study 04/19/17 00:00 IMPRESSION: BILATERAL PLAQUE. NO HEMODYNAMICALLY SIGNIFICANT STENOSIS. Head MRI 04/19/17 08:42 IMPRESSION: No acute findings. Extensive encephalomalacia right hemisphere from old infarct. Assessment & Plan - Diagnosis (1) TIA (transient ischemic attack) Qualifiers: Transient cerebral ischemia type: carotid artery syndrome (hemispheric) Qualified Code(s): G45.1 - Carotid artery syndrome (hemispheric) Is this a current diagnosis for this admission?: YesPlan: Increased ASA to 325mg daily. Continue Zocor 20mg po daily. MRI with old CVA, no acute process. Carotid dopplers with no significant stenosis. Echo-grade 2/4 diastolic dysfunction, no significant valvular disease, normal EF , recommend mobile telemetry monitoring to rule out atrial fibrillation. (2) Hypertensive emergency Is this a current diagnosis for this admission?: YesPlan: Blood pressure remains uncontrolled on metoprolol, Norvasc and Cozaar. Increase Norvasc to 10 mg daily. Increase Cozaar to 50 mg twice daily. As needed IV hydralazine. Check renal artery ultrasound to rule out renal artery stenosis. 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 Followed by Dr. Carranza of neurology as outpatient. (5) Hyperlipidemia Qualifiers: Hyperlipidemia type: unspecified Qualified Code(s): E78.5 - Hyperlipidemia, unspecified Is this a current diagnosis for this admission?: Yes - Time Time Spent with patient: 35 or more minutes
[2017-04-21] MEDS ORDERED: NITROGLYCERIN 2% OINTMENT 1 GM PACKET TP ONE (15:30)
[2017-04-21] MEDS ORDERED: HYDRALAZINE HCL 25 MG TABLET PO ONE (15:30)
[2017-04-21] MEDS: NITROGLYCERIN 2% OINTMENT 1 GM PACKET TP SCH ×2 (17:05→23:31)
[2017-04-21] MEDS: CEFTRIAXONE 1 GM/D5W RTU 1 GM/50 ML RTUPB IV SCH (23:18)
[2017-04-21] MEDS: HYDRALAZINE HCL 25 MG TABLET PO SCH (23:21)
[2017-04-21] MEDS: SIMVASTATIN 10 MG TABLET PO SCH (23:22)
--- NOTE | 2017-04-22 00:13 | RADIOLOGY REPORT (SQ) ---
EXAM DESCRIPTION: DUPLEX ART/NICOLE FLOW COMPLETE COMPLETED DATE/TIME: 04/21/2017 10:21 pm REASON FOR STUDY: Malignant hypertension COMPARISON: None. TECHNIQUE: Realtime and static grayscale images acquired. Selected color Doppler, velocities and spe ctral images recorded. LIMITATIONS: None. FINDINGS: RIGHT KIDNEY: RENAL ARTERY VELOCITIES: 52.9 cm/sec. Segmental artery velocity 39.8 cm/sec. RENAL VEIN: Patent. VELOCITY RATIO: 0.904. Normal waveforms. KIDNEY: Measures 8 cm in length. No hydronephrosis. LEFT KIDNEY: RENAL ARTERY VELOCITIES: 47.5 cm/sec. Segmental artery velocity 43.7 cm/sec. RENAL VEIN: Patent. VELOCITY RATIO: 0.812. Normal waveforms. KIDNEY: Measures 10.9 cm in length. No hydronephrosis. IMPRESSION: NO DOPPLER EVIDENCE OF HEMODYNAMICALLY SIGNIFICANT RENAL ARTERY STENOSIS. COMMENT: NORMAL RENAL ARTERY/AORTA VELOCITY RATIO IS LESS THAN OR EQUAL TO 3.5. TECHNICAL DOCUMENTATION: JOB ID: [id number] [employer]- All Rights Reserved
[2017-04-22] MEDS: ACETAMINOPHEN 325 MG TABLET PO PRN (03:26)
[2017-04-22] MEDS: HYDRALAZINE HCL 25 MG TABLET PO SCH (05:30)
[2017-04-22] MEDS: NITROGLYCERIN 2% OINTMENT 1 GM PACKET TP SCH (05:31)
[2017-04-22] MEDS: METFORMIN HCL 500 MG TABLET PO SCH (07:34)
[2017-04-22] MEDS: ENOXAPARIN SODIUM INJ 40 MG/0.4 ML DISP.SYRIN SUBCUT SCH (07:35)
[2017-04-22] MEDS: METOPROLOL SUCCINATE 25 MG TAB.SR.24H PO SCH (09:47)
[2017-04-22] MEDS: ASPIRIN 325 MG TABLET PO SCH (09:47)
[2017-04-22] MEDS: TOLTERODINE TARTRATE 1 MG TABLET PO SCH (09:48)
[2017-04-22] MEDS: CHOLECALCIFEROL (D3) 1,000 UNIT TABLET PO SCH (09:48)
[2017-04-22] MEDS: LOSARTAN POTASSIUM 50 MG TABLET PO SCH (09:48)
[2017-04-22] MEDS: DOCUSATE SODIUM 100 MG CAPSULE PO SCH (09:48)
[2017-04-22] MEDS ORDERED: AMLODIPINE BESYLATE 5 MG TABLET PO SCH (10:00)
--- NOTE | 2017-04-22 13:32 | PDOC DISCHARGE SUMMARY ---
General - Admit/Disc Date/PCP Admission Date/Primary Care Provider: 04/18/17 17:00 IBAN CASTELAN MD Discharge Date: 04/22/17 - Discharge Diagnosis (1) TIA (transient ischemic attack) Is this a current diagnosis for this admission?: Yes (2) Hypertensive emergency Is this a current diagnosis for this admission?: Yes (3) DM2 (diabetes mellitus, type 2) Is this a current diagnosis for this admission?: Yes (4) Cerebral arteriosclerosis with history of previous stroke Is this a current diagnosis for this admission?: Yes (5) Hyperlipidemia Is this a current diagnosis for this admission?: Yes - Additional Information Resuscitation Status: Full Code Discharge Diet: Cardiac Discharge Activity: Activity As Tolerated Home Medications: Simvastatin [Zocor 20 mg Tablet] 20 mg PO QHS 04/10/12 Solifenacin Succinate [Vesicare] 10 mg PO DAILY 04/10/12 Docusate Sodium [Colace 100 mg Capsule] 100 mg PO BID 03/07/14 Cholecalciferol (Vitamin D3) [D3-2000] 2,000 unit PO DAILY 04/19/17 Cyanocobalamin (Vitamin B-12) [Vitamin B-12] 500 mg PO DAILY 04/19/17 Ibandronate Sodium [Boniva] 150 mg PO [id number] 04/19/17 Metformin HCl [Glucophage] 500 mg PO DAILY 04/19/17 Metoprolol Succinate 25 mg PO BID 04/19/17 Amlodipine Besylate [Norvasc 10 mg Tablet] 10 mg PO DAILY #30 tablet 04/22/17 Aspirin [Aspirin 325 mg Tablet] 325 mg PO DAILY tablet 04/22/17 Ciprofloxacin HCl [Cipro 500 mg Tablet] 500 mg PO BID #10 tablet 04/22/17 Hydralazine HCl 50 mg PO TID #90 tablet 04/22/17 Losartan Potassium [Cozaar 50 mg Tablet] 50 mg PO Q12 #60 tablet 04/22/17 History of Present Illness Patient complains of: Weakness History of Present Illness: WARREN FARRIS is a 81 year old female with a history of hypertension and a stroke in 2008 involving the right middle cerebral artery distribution resulting in a chronic left hemiparesis. For the last few days the patient has felt poorly. She has developed an intermittent exaggerated left foot drop and perhaps an exaggerated left facial droop, worsening her pre-existent left hemiparesis. There was also some degree of increased confusion. Today she developed headache and came to the emergency department. By that time, the additional neurologic symptoms had cleared to baseline. She was found to have a blood pressure of 210/106. She was given hydralazine and to the blood pressure corrected to 157/83. Later it came back up to 183/70. CT brain shows the old right middle cerebral artery territory infarct but no acute changes. The patient will be admitted with a diagnosis of TIA for monitoring and for further evaluation and treatment. Hospital Course Hospital Course: Patient was admitted with the diagnosis of hypertensive crisis and TIA. Neuroimaging revealed no acute process. Carotid Dopplers listed below showed no significant stenosis. Echocardiogram showed normal EF, grade 2/4 diastolic dysfunction, mild to moderate mitral regurgitation. Recommendation was made for mobile telemetry monitoring after discharge. Patient's aspirin was increased to 325 mg daily. She is on simvastatin 20 mg nightly. Regard to patient's hypertensive crisis her medications have been advanced to regimen mentioned above. Renal artery Doppler was negative for renal artery stenosis. Blood pressure was stable at time of discharge. Patient was asymptomatic. Patient was noted to have urinary tract infection and has been initially treated with IV Rocephin. She is being transitioned to oral Cipro at discharge. Physical Exam Vital Signs: Temp Pulse Resp BP Pulse Ox 98.0 F 64 18 148/65 H 99 04/22/17 11:05 04/22/17 11:34 04/22/17 11:05 04/22/17 11:34 04/22/17 11:34 Intake & Output 04/21/17 04/22/17 04/23/17 06:59 06:59 06:59 Intake Total 1459 776 673 Output Total 400 Balance 1059 776 673 Weight 64.7 kg 66.2 kg GENERAL: No acute distress HEENT: Conjunctiva clear, nonicteric, moist mucous membranes, no JVD, midline trachea RESPIRATORY: Clear to auscultation bilaterally, no wheezes, no rhonchi CARDIAC: Regular rate and rhythm, no murmurs/gallops/rubs ABDOMEN: Soft, nondistended, nontender, positive bowel sounds, no rebound, no guarding EXTREMETIES: No edema, cyanosis, clubbing NEUROLOGIC: Alert, oriented to person/place/time, CN's grossly intact, left hemiparesis SKIN: No rash, wounds PSYCH: Normal mood, normal affect Results Laboratory Results: 04/21/17 04:30 04/21/17 04:30 Impressions: Head CT 04/18/17 12:44 IMPRESSION: LARGE CHRONIC RIGHT MCA TERRITORY INFARCTION. NO CT EVIDENCE OF ACUTE INTRACRANIAL PROCESS. Carotid Doppler Study 04/19/17 00:00 IMPRESSION: BILATERAL PLAQUE. NO HEMODYNAMICALLY SIGNIFICANT STENOSIS. Head MRI 04/19/17 08:42 IMPRESSION: No acute findings. Extensive encephalomalacia right hemisphere from old infarct. Qualifiers PATEINT BEING DISCHARGED WITH ANY OF THE FOLLOWING DIAGNOSIS?: Stroke VTE patient discharged on overlapping Therapy?: Yes Stroke Pt being discharged on Anti-thrombolytic therapy?: Yes Stroke Pt being discharged on Anti-coagulation therapy?: No Reason(s) for not prescribing Anti-coagulation therapy:: Not indicated Stroke Pt being discharged on Statins?: Yes Plan Time Spent: Less than 30 Minutes
[2017-04-22 13:58] VITALS: BP 148/69
[2017-04-22] MEDS ORDERED: HYDRALAZINE HCL 25 MG TABLET PO SCH (14:00)
== END 2017-04-22 15:30 | disposition home or self-care (01) | DRG 69 ==
LOC: ER 12:08 → OBSVTOIN 17:00 → EH 17:00 → 3W 20:45
PROVIDERS: ADMIT Internal Medicine; ATTEND Internal Medicine
DX: G45.1 Carotid artery syndrome (hemispheric) (principal); I16.1 Hypertensive emergency; N39.0 Urinary tract infection, site not specified; I69.354 Hemiplegia and hemiparesis following cerebral infarction affecting left non-dominant side; I10 Essential (primary) hypertension; E11.9 Type 2 diabetes mellitus without complications; E78.5 Hyperlipidemia, unspecified; I34.0 Nonrheumatic mitral (valve) insufficiency; R29.810 Facial weakness; M21.372 Foot drop, left foot; I25.2 Old myocardial infarction; Z66 Do not resuscitate; Z79.82 Long term (current) use of aspirin; Z79.899 Other long term (current) drug therapy; Z85.3 Personal history of malignant neoplasm of breast; Z90.11 Acquired absence of right breast and nipple; Z88.1 Allergy status to other antibiotic agents; Z88.8 Allergy status to other drugs, medicaments and biological substances; Z88.2 Allergy status to sulfonamides
CPT/HCPCS: 36415; 70450; 70551; 80048; 80053; 80061; 81001; 82550; 82553; 82962; 84484; 85025; 93005; 93010; 93306; 93880; 93975; 96374; 99291; J0360; J0696; J1650

== ENCOUNTER 2017-04-25 20:05 | Emergency (ER) | payer MEDICARE, BC ==
--- NOTE | 2017-04-25 21:58 | ER Document Report ---
ED General - General Chief Complaint: High Blood Pressure Stated Complaint: BLOOD PRESSURE ISSUE Time Seen by Provider: 04/25/17 21:21 Mode of Arrival: Ambulatory Information source: Patient, Relative, [facility] Records Notes: 81-year-old female who is currently on 3 blood pressure medications presents with complaints of high blood pressure. Family notes blood pressure was in the 190s/80 . But currently looks well. Patient had a headache at that time which has since resolved. Patient does continue to have urinary symptoms and was treated with Cipro for UTI. Patient was recently discharged from the hospital for TIA TRAVEL OUTSIDE OF THE [place] IN LAST 30 DAYS: No - HPI Onset: Just prior to arrival Onset/Duration: Sudden Quality of pain: Achy Severity: Mild Pain Level: Denies Associated symptoms: Headache Exacerbated by: Denies Relieved by: Denies Similar symptoms previously: Yes Recently seen / treated by doctor: Yes - Related Data Allergies/Adverse Reactions: erythromycin base [Erythromycin Base] Allergy (Severe, Verified 03/05/14 15:29) cortisone [Cortisone] Allergy (Intermediate, Verified 03/05/14 15:29) Sulfa (Sulfonamide Antibiotics) Allergy (Intermediate, Verified 03/05/14 15:29) diazepam [From Valium] Adverse Reaction (Unknown, Verified 03/05/14 15:29) Delirium Past Medical History - Social History Smoking Status: Never Smoker Cigarette use (# per day): No Chew tobacco use (# tins/day): No Smoking Education Provided: No Family History: Reviewed & Not Pertinent Patient has suicidal ideation: No Patient has homicidal ideation: No - Past Medical History Cardiac Medical History: Reports: Hx Heart Attack - ? YEARS AGO, Hx Hypertension - CONTROLLED WITH MEDS Pulmonary Medical History: Denies: Hx Asthma Neurological Medical History: Reports: Hx Cerebrovascular Accident - 2009 LEFT SIDED WEAKNESS. Denies: Hx Seizures Endocrine Medical History: Reports: Hx Diabetes Mellitus Type 2 Renal/ Medical History: Denies: Hx Peritoneal Dialysis Malignancy Medical History: Reports: Hx Breast Cancer GI Medical History: Denies: Hx Hepatitis, Hx Hiatal Hernia, Hx Ulcer Psychiatric Medical History: Denies: Hx Depression Infectious Medical History: Denies: Hx Hepatitis Past Surgical History: Reports: Hx Mastectomy - RT BREAST, SIDE IS RESTRICTED. Denies: Hx Hysterectomy, Hx Open Heart Surgery, Hx Pacemaker - Immunizations Hx Pneumococcal Vaccination: 04/19/17 Review of Systems - Review of Systems Notes: REVIEW OF SYSTEMS: CONSTITUTIONAL : Denies fever, chills, or sweats. Denies recent illness. EENT: Denies eye, ear, throat, or mouth pain or symptoms. Denies nasal or sinus congestion or discharge. Denies throat, tongue, or mouth swelling or difficulty swallowing. CARDIOVASCULAR: Denies chest pain. Denies palpitations or racing or irregular heart beat. Denies ankle edema. RESPIRATORY: Denies cough, cold, or chest congestion. Denies shortness of breath, difficulty breathing, or wheezing. GASTROINTESTINAL: Denies abdominal pain or distention. Denies nausea, vomiting , or diarrhea. Denies blood in vomitus, stools, or per rectum. Denies black, tarry stools. Denies constipation. GENITOURINARY: Denies difficulty urinating, painful urination, burning, frequency, blood in urine, or discharge. FEMALE GENITOURINARY: Denies vaginal bleeding, heavy or abnormal periods, irregular periods. Denies vaginal discharge or odor. MUSCULOSKELETAL: Denies back or neck pain or stiffness. Denies joint pain or swelling. SKIN: Denies rash, lesions or sores. HEMATOLOGIC : Denies easy bruising or bleeding. LYMPHATIC: Denies swollen, enlarged glands. NEUROLOGICAL: left Sided deficit PSYCHIATRIC: Denies anxiety or stress. Denies depression, suicidal ideation, or homicidal ideation. ALL OTHER SYSTEMS REVIEWED AND NEGATIVE. Dictation was performed using [employer] voice recognition software PHYSICAL EXAMINATION: GENERAL: Well-appearing, well-nourished and in no acute distress. HEAD: Atraumatic, normocephalic. EYES: Pupils equal round and reactive to light, extraocular movements intact, conjunctiva are normal. ENT: Nares patent, oropharynx clear without exudates. Moist mucous membranes. NECK: Normal range of motion, supple without lymphadenopathy LUNGS: Breath sounds clear to auscultation bilaterally and equal. No wheezes rales or rhonchi. HEART: Regular rate and rhythm without murmurs ABDOMEN: Soft, nontender, nondistended abdomen. No guarding, no rebound. No masses appreciated. Female : deferred Musculoskeletal: Left hand contracture chronic left leg weakness chronic NEUROLOGICAL: no Acute abnormality PSYCH: Normal mood, normal affect. SKIN: Warm, Dry, normal turgor, no rashes or lesions noted. Physical Exam - Vital signs Vitals: Temp Pulse Resp BP Pulse Ox 98.0 F 66 16 133/56 H 97 04/25/17 20:12 04/25/17 20:12 04/25/17 20:12 04/25/17 20:12 04/25/17 20:12 Course - Re-evaluation Re-evalutation: 04/25/17 21:57 Patient blood pressure appears well controlled at this time, I will repeat her urinalysis - Vital Signs Vital signs: Temp Pulse Resp BP Pulse Ox 98.0 F 66 16 133/56 H 97 04/25/17 20:12 04/25/17 20:12 04/25/17 20:12 04/25/17 20:12 04/25/17 20:12 - Laboratory Laboratory results interpreted by me: 04/25/17 22:25 Ur Leukocyte Esterase MODERATE H Discharge - Discharge Clinical Impression: Hypertension Qualifiers: Hypertension type: essential hypertension Qualified Code(s): I10 - Essential ( primary) hypertension Condition: Stable Disposition: HOME, SELF-CARE Instructions: High Blood Pressure ([facility]) Referrals: IBAN CASTELAN MD [Primary Care Provider] - Follow up tomorrow
[2017-04-25 22:40] LABS: APPEARANCE,URINE CLEAR; BILIRUBIN,URINE NEGATIVE (NEGATIVE); GLUCOSE, URINE NEGATIVE (NEGATIVE); KETONES,URINE NEGATIVE (NEGATIVE); LEUKOCYTE ESTERASE,URINE MODERATE (NEGATIVE); NITRITE,URINE NEGATIVE (NEGATIVE); PROTEIN,URINE NEGATIVE (NEGATIVE); URINE SPECIFIC GRAVITY 1.008; UROBILINOGEN,URINE NEGATIVE mg/dL (<2.0)
[2017-04-25 23:18] VITALS: BP 145/55
== END 2017-04-25 23:10 | disposition home or self-care (01) ==
LOC: ER 20:05
DX: I10 Essential (primary) hypertension (principal); R39.9 Unspecified symptoms and signs involving the genitourinary system; I69.354 Hemiplegia and hemiparesis following cerebral infarction affecting left non-dominant side; E11.9 Type 2 diabetes mellitus without complications; Z87.440 Personal history of urinary (tract) infections; Z79.899 Other long term (current) drug therapy; Z88.1 Allergy status to other antibiotic agents; Z88.8 Allergy status to other drugs, medicaments and biological substances; Z88.2 Allergy status to sulfonamides; Z85.3 Personal history of malignant neoplasm of breast
CPT/HCPCS: 81001; 87086; 99283

== ENCOUNTER 2019-09-06 15:00 | Emergency (ER) | payer MEDICARE, BC ==
[2019-09-06] MEDS ORDERED: ACETAMINOPHEN 325 MG TABLET PO ONE ×2 (15:18→17:18)
--- NOTE | 2019-09-06 15:18 | ER Document Report ---
ED Medical Screen (RME) - General Chief Complaint: Fall Stated Complaint: FALL/HIP PAIN Time Seen by Provider: 09/06/19 15:16 Primary Care Provider: IBAN CASTELAN MD [Primary Care Provider] - Follow up as needed Mode of Arrival: Medic Information source: Patient Notes: 84-year-old female presented to ED for injuring her hip. She states she was standing on a stool and went to get off the stool when she fell. She states she thinks the left hip gave out from under her and causing her to fall. She states she thinks is just badly bruised but she does need it checked out. She states she had a fractured hip in the past and they pinned it back together on the same hip. She is alert oriented respirations regular nonlabored. She states she has had a stroke in the past so she is weak on that side. I have greeted and performed a rapid initial assessment of this patient. A comprehensive ED assessment and evaluation of the patient, analysis of test results and completion of medical decision making process will be conducted by an additional ED providers. TRAVEL OUTSIDE OF THE [place] IN LAST 30 DAYS: No - Related Data Allergies/Adverse Reactions: erythromycin base [Erythromycin Base] Allergy (Severe, Verified 03/05/14 15:29) cortisone [Cortisone] Allergy (Intermediate, Verified 03/05/14 15:29) Sulfa (Sulfonamide Antibiotics) Allergy (Intermediate, Verified 03/05/14 15:29) diazepam [From Valium] Adverse Reaction (Unknown, Verified 03/05/14 15:29) Delirium Past Medical History - Past Medical History Cardiac Medical History: Reports: Hx Heart Attack - ? YEARS AGO, Hx Hypertension - CONTROLLED WITH MEDS Pulmonary Medical History: Denies: Hx Asthma Neurological Medical History: Reports: Hx Cerebrovascular Accident - 2009 LEFT SIDED WEAKNESS. Denies: Hx Seizures Endocrine Medical History: Reports: Hx Diabetes Mellitus Type 2 Renal/ Medical History: Denies: Hx Peritoneal Dialysis Malignancy Medical History: Reports: Hx Breast Cancer GI Medical History: Denies: Hx Hepatitis, Hx Hiatal Hernia, Hx Ulcer Psychiatric Medical History: Denies: Hx Depression Infectious Medical History: Denies: Hx Hepatitis Past Surgical History: Reports: Hx Mastectomy - RT BREAST, SIDE IS RESTRICTED. Denies: Hx Hysterectomy, Hx Open Heart Surgery, Hx Pacemaker Doctor's Discharge - Discharge Referrals: IBAN CASTELAN MD [Primary Care Provider] - Follow up as needed
--- NOTE | 2019-09-06 16:02 | RADIOLOGY REPORT (SQ) ---
EXAM DESCRIPTION: HIP LEFT AP/LATERAL COMPLETED DATE/TIME: 09/06/2019 3:44 pm REASON FOR STUDY: left hip pain; pain with ambulating COMPARISON: None. NUMBER OF VIEWS: Two views. TECHNIQUE: AP pelvis and additional frog-leg view of the left hip. LIMITATIONS: None. FINDINGS: MINERALIZATION: Normal. LEFT HIP: No fracture or dislocation. Hardware in the femoral neck. No worrisome bone lesions. RIGHT HIP: No fracture or dislocation. No worrisome bone lesions. PUBIS AND ISCHIUM: No fracture. PELVIS: No fracture. SACRUM: No fracture or dislocation. No worrisome bone lesions. LOWER LUMBAR SPINE: No fracture or dislocation. No worrisome bone lesions. No significant disc disea se. SOFT TISSUES: No findings. OTHER: Pessary in the pelvis. IMPRESSION: HARDWARE IN THE LEFT FEMORAL NECK. NO APPARENT ACUTE FINDINGS. TECHNICAL DOCUMENTATION: JOB ID: [id number] [employer]- All Rights Reserved Reading location - IP/workstation name: [email or web address]
--- NOTE | 2019-09-06 18:05 | ER Document Report ---
ED Fall - General Chief Complaint: Hip Injury Stated Complaint: FALL/HIP PAIN Time Seen by Provider: 09/06/19 15:16 Primary Care Provider: [facility] [Provider Group] - Follow up as needed ILAN HEWITT JR, DO [ACTIVE PROVISIONAL STAFF] - Follow up as needed IBAN CASTELAN MD [Primary Care Provider] - Follow up as needed Mode of Arrival: Medic Information source: Patient Notes: Patient was at home and up on a step stool. Patient states that her left leg gave out causing her to fall from the stepstool landing on her left hip and shoulder. Patient denies any head injury or loss of consciousness. Patient does report left-sided weakness due to previous CVA. Patient denies taking any anticoagulants. Patient complains of difficulty ambulating. TRAVEL OUTSIDE OF THE [place] IN LAST 30 DAYS: No - HPI Occurred: This afternoon Where: Home Context: Fell from standing, Fell from height Associated symptoms: Difficulty walking Location of injury/pain: Hip, Shoulder, Upper extremity, Lower extremity Quality of pain: Achy Pain Level: 3 - Related data Allergies/Adverse Reactions: erythromycin base [Erythromycin Base] Allergy (Severe, Verified 03/05/14 15:29) cortisone [Cortisone] Allergy (Intermediate, Verified 03/05/14 15:29) Sulfa (Sulfonamide Antibiotics) Allergy (Intermediate, Verified 03/05/14 15:29) diazepam [From Valium] Adverse Reaction (Unknown, Verified 03/05/14 15:29) Delirium Past Medical History - General Information source: Patient, Relative - Social History Smoking Status: Never Smoker Frequency of alcohol use: None Drug Abuse: None Occupation: none Lives with: Friend Family History: Reviewed & Not Pertinent Patient has suicidal ideation: No Patient has homicidal ideation: No - Past Medical History Cardiac Medical History: Reports: Hx Heart Attack - ? YEARS AGO, Hx Hypercholesterolemia, Hx Hypertension - CONTROLLED WITH MEDS Pulmonary Medical History: Denies: Hx Asthma Neurological Medical History: Reports: Hx Cerebrovascular Accident - 2009 LEFT SIDED WEAKNESS. Denies: Hx Seizures Endocrine Medical History: Reports: Hx Diabetes Mellitus Type 2 Renal/ Medical History: Denies: Hx Peritoneal Dialysis Malignancy Medical History: Reports: Hx Breast Cancer GI Medical History: Denies: Hx Hepatitis, Hx Hiatal Hernia, Hx Ulcer Psychiatric Medical History: Denies: Hx Depression Infectious Medical History: Denies: Hx Hepatitis Past Surgical History: Reports: Hx Mastectomy - RT BREAST, SIDE IS RESTRICTED, Hx Orthopedic Surgery - left hip - Immunizations Hx Pneumococcal Vaccination: 04/19/17 Review of Systems - Review of Systems Constitutional: No symptoms reported. denies: Fever, Recent illness EENT: No symptoms reported Cardiovascular: No symptoms reported. denies: Chest pain, Dizziness, Lightheaded Respiratory: No symptoms reported. denies: Cough, Short of breath Gastrointestinal: No symptoms reported. denies: Abdominal pain, Nausea, Vomiting Genitourinary: No symptoms reported. denies: Dysuria, Flank pain Female Genitourinary: No symptoms reported Musculoskeletal: Joint pain - left hip, left shoulder, Other - difficulty ambulating. denies: Back pain Skin: No symptoms reported Hematologic/Lymphatic: No symptoms reported Neurological/Psychological: No symptoms reported. denies: Weakness, Lost consciousness, Headaches Physical Exam - Vital signs Vitals: Temp Pulse Resp BP Pulse Ox 98.5 F 69 18 133/56 H 99 09/06/19 15:13 09/06/19 15:13 09/06/19 15:13 09/06/19 15:13 09/06/19 15:13 - General General appearance: Appears well, Alert In distress: None - HEENT Head: Normocephalic, Atraumatic. No: Abrasions, Shoemaker's sign, Ecchymosis, [place]'s eyes, Tenderness Eyes: Normal Conjunctiva: Normal Nasal: Normal Mouth/Lips: Normal Mucous membranes: Normal Neck: Normal, Supple, Other - No cervical midline tenderness step-off or deformity. No: Lymphadenopathy - Respiratory Respiratory status: No respiratory distress Chest status: Nontender Breath sounds: Normal Chest palpation: Normal - Cardiovascular Rhythm: Regular Heart sounds: S1 appreciated, S2 appreciated Murmur: No - Abdominal Inspection: Normal Bowel sounds: Normal Tenderness: Nontender - Back Back: Normal, Nontender. No: Deformity/step-off, CVA tenderness, Vertebra tenderness - Extremities General upper extremity: Tender - Left shoulder, Other - Contracture to the left upper extremity General lower extremity: Tender - Hip tenderness Shoulder: Tender - Tenderness to the left shoulder, Limited ROM. No: Deformity, Ecchymosis Arm: Nontender, Other - Fracture to left upper extremity Elbow: Nontender Forearm: Nontender Wrist: Nontender Hand: Nontender Hip: Tender - Left hip joint tenderness over posterior aspect of left hip, Pain with ROM. No: Abrasion, Dislocation, Ecchymosis Thigh: Normal, Nontender Knee: Normal, Nontender Ankle: Normal, Nontender Foot: Normal, Nontender - Neurological Neuro grossly intact: Yes Cognition: Normal [place] Coma Scale Eye Opening: Spontaneous Adryan Coma Scale Verbal: Oriented Adryan Coma Scale Motor: Obeys Commands Adryan Coma Scale Total: 15 - Psychological Associated symptoms: Normal affect, Normal mood - Skin Skin Temperature: Warm Skin Moisture: Dry Skin Color: Normal Course - Re-evaluation Re-evalutation: 09/06/19 18:[address] mckeon regarding mechanism of injury concern about possible occult fracture. Does recommend imaging of the extremity at this time 09/06/19 20:11 Pt without any obvious fracture. Patient will be placed in sling to left upper extremity and encouraged to follow-up with orthopedics for further evaluation. Offered patient pain medication, patient prefers only to take Tylenol this time. - Vital Signs Vital signs: Temp Pulse Resp BP Pulse Ox 98.8 F 74 14 152/70 H 100 09/06/19 21:20 09/06/19 21:20 09/06/19 21:20 09/06/19 21:20 09/06/19 21:20 - Diagnostic Test Radiology reviewed: Reports reviewed Procedures - Immobilization Left Shoulder Pre-Proc Neuro Vasc Exam: Normal Immobilizer type: Sling Performed by: PCT Post-Proc Neuro Vasc Exam: Normal Alignment checked and good: Yes Discharge - Discharge Clinical Impression: Fall Qualifiers: Encounter type: initial encounter Qualified Code(s): W19.XXXA - Unspecified fall, initial encounter Sprain of left hip Qualifiers: Encounter type: initial encounter Qualified Code(s): S73.102A - Unspecified sprain of left hip, initial encounter Sprain of left shoulder Qualifiers: Encounter type: initial encounter Shoulder sprain type: unspecified sprain Qualified Code(s): S43.402A - Unspecified sprain of left shoulder joint, initial encounter Condition: Stable Disposition: HOME, SELF-CARE Instructions: Acetaminophen, Ice & Elevation ([facility]), Shoulder Injury ([facility]), Sprain ([facility]), Temporary Sling ([facility]) Additional Instructions: Return immediately for any new or worsening symptoms Followup with your primary care provider, call tomorrow to make a followup appointment Wear sling while awake only for the next 4 to 5 days and then remove. Perform gentle range of motion exercises to the shoulder joint. Follow-up with orthopedics for any persistent pain or problems Referrals: IBAN CASTELAN MD [Primary Care Provider] - Follow up as needed ILAN HEWITT JR, DO [ACTIVE PROVISIONAL STAFF] - Follow up as needed [facility] [Provider Group] - Follow up as needed
--- NOTE | 2019-09-06 18:49 | RADIOLOGY REPORT (SQ) ---
EXAM DESCRIPTION: SHOULDER LEFT 2 OR MORE VIEWS COMPLETED DATE/TIME: 09/06/2019 6:06 pm REASON FOR STUDY: fall, L shoulder pain COMPARISON: None. NUMBER OF VIEWS: Three views. TECHNIQUE: Internal rotation, external rotation, and Y view images acquired of the left shoulder. LIMITATIONS: None. FINDINGS: MINERALIZATION: Osteopenia. BONES: No acute fracture. No worrisome bone lesions. JOINTS: No dislocation. Glenohumeral and acromioclavicular joint degenerative changes. VISUALIZED LUNGS AND RIBS: No pneumothorax. No rib fracture. SOFT TISSUES: No radiopaque foreign body. OTHER: No other significant finding. IMPRESSION: No obvious acute fracture of the left shoulder, in the setting of osteopenia. TECHNICAL DOCUMENTATION: JOB ID: [id number] [employer]- All Rights Reserved Reading location - IP/workstation name: [email or web address]
--- NOTE | 2019-09-06 19:13 | RADIOLOGY REPORT (SQ) ---
EXAM DESCRIPTION: CT LT LOWER EXTREMITY WITHOUT COMPLETED DATE/TIME: 09/06/2019 6:32 pm REASON FOR STUDY: trauma, L hip pain COMPARISON: None. TECHNIQUE: CT scan of the left hip performed without intravenous or oral contrast. Images reviewed with soft tissue and bone windows. Reconstructed coronal and sagittal MPR images reviewed. All imag es stored on PACS. All CT scanners at this facility use dose modulation, iterative reconstruction, and/or weight based d osing when appropriate to reduce radiation dose to as low as reasonably achievable (ALARA). [facility]: Dose Right [facility]: CareDose [facility]: Dose Right [facility]: Teradose 4D [facility]: Smart Cinegif RADIATION DOSE: CT Rad equipment meets quality standard of care and radiation dose reduction techniq ues were employed. CTDIvol: 13.6 mGy. DLP: 460 mGy-cm. mGy. LIMITATIONS: None. FINDINGS: PELVIC BONES: No acute fracture. No worrisome bone lesions. VISUALIZED SPINE: No acute findings. SYMPTOMATIC HIP: Left femoral neck screw fixation with intact hardware. No acute left femoral neck f racture. Osteoarthritis. OPPOSITE HIP: No acute fracture or dislocation. No worrisome bone lesions. Osteoarthritis. PELVIC SOFT TISSUES: No acute findings. Pessary. EXTRAPELVIC SOFT TISSUES: Left lateral hip subcutaneous soft tissue contusion. OTHER: No other significant finding. IMPRESSION: Postsurgical changes left femoral neck screw fixation without evidence of hardware compl ication or acute fracture. Left lateral hip subcutaneous soft tissue contusion. TECHNICAL DOCUMENTATION: JOB ID: [id number] Quality ID # [id number]: Final reports with documentation of one or more dose reduction techniques (e.g., Au tomated exposure control, adjustment of the mA and/or kV according to patient size, use of iterative reconstruction technique) 2010 [employer]- All Rights Reserved Reading location - IP/workstation name: [email or web address]
[2019-09-06] MEDS ORDERED: METOPROLOL TARTRATE 25 MG TABLET PO ONE (20:09)
[2019-09-06] MEDS ORDERED: LOSARTAN POTASSIUM 50 MG TABLET PO ONE (20:10)
[2019-09-06 21:22] VITALS: BP 152/70
== END 2019-09-06 21:00 | disposition home or self-care (01) ==
LOC: ER 15:00
DX: M25.562 Pain in left knee (principal); W17.89XA Other fall from one level to another, initial encounter; I25.2 Old myocardial infarction; Z88.3 Allergy status to other anti-infective agents; Z88.2 Allergy status to sulfonamides
CPT/HCPCS: 73502; 73030; 73700; A9270 ×3

== ENCOUNTER 2019-09-07 03:53 | Observation (INO) | payer MEDICARE, BC ==
--- NOTE | 2019-09-07 05:13 | ER Document Report ---
ED General - General TRAVEL OUTSIDE OF THE [place] IN LAST 30 DAYS: No <AYANA CALABRESE - Last Filed: 09/07/19 08:17> <ELMER MARX - Last Filed: 09/07/19 12:23> - General Chief Complaint: Pain Stated Complaint: WEAKNESS Time Seen by Provider: 09/07/19 04:27 Notes: Patient is an 84-year-old female who presents emergency department with weakness. The patient had fallen yesterday and was seen here in the emergency department. Patient states that she went home and ended up falling again on her left knee. She sustained some scrapes to her left knee. Patient has a history of a CVA with left-sided weakness. Patient currently lives alone. Patient denies any cough, fever, or any other symptoms at this time. (AYANA CALABRESE) - Related Data Allergies/Adverse Reactions: erythromycin base [Erythromycin Base] Allergy (Severe, Verified 03/05/14 15:29) cortisone [Cortisone] Allergy (Intermediate, Verified 03/05/14 15:29) Sulfa (Sulfonamide Antibiotics) Allergy (Intermediate, Verified 03/05/14 15:29) diazepam [From Valium] Adverse Reaction (Unknown, Verified 03/05/14 15:29) Delirium Past Medical History - Social History Smoking Status: Never Smoker Family History: Reviewed & Not Pertinent Patient has suicidal ideation: No Patient has homicidal ideation: No - Past Medical History Cardiac Medical History: Reports: Hx Heart Attack - ? YEARS AGO, Hx Hypercholesterolemia, Hx Hypertension - CONTROLLED WITH MEDS Pulmonary Medical History: Denies: Hx Asthma Neurological Medical History: Reports: Hx Cerebrovascular Accident - 2009 LEFT SIDED WEAKNESS. Denies: Hx Seizures Endocrine Medical History: Reports: Hx Diabetes Mellitus Type 2 Renal/ Medical History: Denies: Hx Peritoneal Dialysis Malignancy Medical History: Reports: Hx Breast Cancer GI Medical History: Denies: Hx Hepatitis, Hx Hiatal Hernia, Hx Ulcer Psychiatric Medical History: Denies: Hx Depression Infectious Medical History: Denies: Hx Hepatitis Past Surgical History: Reports: Hx Mastectomy - RT BREAST, SIDE IS RESTRICTED, Hx Orthopedic Surgery - left hip. Denies: Hx Hysterectomy, Hx Open Heart Surgery, Hx Pacemaker - Immunizations Hx Pneumococcal Vaccination: 04/19/17 <AYANA CALABRESE - Last Filed: 09/07/19 08:17> Review of Systems <AYANA CALABRESE - Last Filed: 09/07/19 08:17> - Review of Systems Notes: REVIEW OF SYSTEMS: CONSTITUTIONAL : Denies recent illness. Denies recent unintentional weight loss. Denies fever, chills, or sweats. EENT: Denies eye, ear, throat, or mouth pain, discharge, or symptoms. Denies nasal or sinus congestion. CARDIOVASCULAR: Denies chest pain. RESPIRATORY: Denies shortness of breath, cough, congestion, difficulty breathing, or wheezing. GASTROINTESTINAL: Denies nausea, vomiting, and diarrhea. Denies abdominal pain. Denies constipation. GENITOURINARY: Denies difficulty urinating, burning, blood in urine, urgency or frequency. MUSCULOSKELETAL: Denies neck and back pain. Denies joint pain or swelling. SKIN: Denies rash, itchiness, or lesions HEMATOLOGIC : Denies easy bruising or bleeding. LYMPHATIC: Denies swollen, painful, enlarged glands. NEUROLOGICAL: See HPI. PSYCHIATRIC: Denies stress, anxiety, alteration in sleep patterns, or depression. All other systems reviewed and negative. (AYANA CALABRESE) Physical Exam <AYANA CALABRESE - Last Filed: 09/07/19 08:17> - Vital signs Vitals: Temp Pulse Resp BP Pulse Ox 97.9 F 69 16 139/68 H 98 09/07/19 04:01 09/07/19 04:01 09/07/19 04:01 09/07/19 04:01 09/07/19 04:01 - Notes Notes: PHYSICAL EXAMINATION: GENERAL: Appears stated age., well-nourished, no acute distress. HEAD: Normocephalic, atraumatic. EYES: PERRL, conjunctiva normal, all extraocular movements intact, sclera nonicteric ENT: Moist mucous membranes. NECK: Supple, no noticeable swelling, redness, rash. Normal range of motion. LUNGS: Equal breath sounds bilaterally and clear to auscultation. No wheezes rales or rhonchi. CARDIOVASCULAR: S1-S2, regular rate, regular rhythm. Radial pulses 2+, normal. ABDOMEN: Normoactive bowel sounds. Soft, nontender, no guarding, no rebound tenderness, and no masses palpated. EXTREMITIES: Normal strength and range of motion, no pitting or edema. No cyanosis. NEUROLOGICAL: Contractions noted to left upper arm. Strength 5/5 in right upper and lower extremities. PSYCH: Normal mood, normal affect. SKIN: Warm, dry. No rash, lesions, ulcerations noted. Abrasion noted to left anterior knee. (AYANA CALABRESE) Course - Laboratory Result Diagrams: 09/07/19 05:30 09/07/19 05:30 <AYANA CALABRESE - Last Filed: 09/07/19 08:17> - Laboratory Result Diagrams: 09/07/19 05:30 09/07/19 05:30 - Diagnostic Test Radiology reviewed: Reports reviewed <ELMER MARX - Last Filed: 09/07/19 12:23> - Re-evaluation Re-evalutation: 09/07/19 05:12 Patient will have labs done and urinalysis done. X-ray will be ordered. Patient is alert and oriented. 09/07/19 07:46 Patient's hematology is she has a leukocytosis of 12,100. Chemistries are unremarkable. Her blood sugar is 186. Troponin is indeterminant. Patient denies any pain at this time. Chest x-ray is unremarkable. At this time, I am waiting a urinalysis. A straight cath has been ordered. 09/07/19 08:17 Bedside report given to Damaso Marx NP. Plan is to have Ibrahima, the case sealer evaluate the patient and her situation of living on her own. We will also follow-up on urinalysis. (AYANA CALABRESE) 09/07/19 08:29 Patient is noted to have positive nitrites in the urine. We will treat for urinary tract infection. I did make the patient aware of this. Patient states that she would like help getting placed into a assisted living facility as she has fallen multiple times at home and does live by herself. Troponin was indeterminate. Will repeat this. 09/07/19 10:38 Patient's troponin slightly increased. Patient does deny chest pain. Patient does not have a primary care physician. Will consult hospitalist service for admission. (ELMER MARX) - Vital Signs Vital signs: Temp Pulse Resp BP Pulse Ox 98.2 F 69 16 147/75 H 95 09/07/19 11:55 09/07/19 04:01 09/07/19 04:01 09/07/19 11:01 09/07/19 11:01 - Laboratory Laboratory results interpreted by me: 09/07/19 09/07/19 09/07/19 05:30 05:30 07:44 WBC 12.1 H Seg Neuts % (Manual) 89 H Band Neutrophils % 2 L Lymphocytes % (Manual) 2 L Abs Neuts (Manual) 11.0 H Abs Lymphs (Manual) 0.2 L Glucose 186 H Urine Nitrite POSITIVE H Ur Leukocyte Esterase TRACE H - Diagnostic Test Radiology results interpreted by me: 09/07/19 09:06 Chest X-Ray 09/07/19 04:53 IMPRESSION: No acute cardiopulmonary process copyright 2011 [employer]- All Rights Reserved Knee X-Ray 09/07/19 08:02 IMPRESSION: Osteopenia. No fracture or dislocation of the left knee. No knee joint effusion. (ELMER MARX) Discharge <AYANA CALABRESE - Last Filed: 09/07/19 08:17> - Discharge Admitting Provider: Beba (Hospitalist) Unit Admitted: Medical Floor <ELMER MARX - Last Filed: 09/07/19 12:23> - Discharge Clinical Impression: Frequent falls, Generalized weakness UTI (urinary tract infection) Qualifiers: Urinary tract infection type: site unspecified Hematuria presence: without hematuria Qualified Code(s): N39.0 - Urinary tract infection, site not specified Knee pain Qualifiers: Chronicity: acute Laterality: left Qualified Code(s): M25.562 - Pain in left knee Condition: Stable Disposition: ADMITTED OBSERVATION
--- NOTE | 2019-09-07 05:23 | RADIOLOGY REPORT (SQ) ---
EXAM DESCRIPTION: XR CHEST 1 VIEW COMPLETED DATE/TME: 09/07/2019 04:53 CLINICAL HISTORY: 84 years, Female, fall COMPARISON: None. NUMBER OF VIEWS: 1 TECHNIQUE: Portable chest LIMITATIONS: None. FINDINGS: Heart size is normal. Atheromatous change thoracic aorta. Osteopenia. Post surgical change right axilla. Lungs are clear. No pneumothorax IMPRESSION: No acute cardiopulmonary process copyright 2010 [employer]- All Rights Reserved
[2019-09-07 05:55] LABS: HEMATOCRIT 40.9 % (36.0-47.0); HEMOGLOBIN 13.7 g/dL (12.0-15.5); MEAN CORPUSCULAR HEMOGLOBIN 32.3 pg (27.0-33.4); MEAN CORPUSCULAR HGB CONC 33.6 g/dL (32.0-36.0); MEAN CORPUSCULAR VOLUME 96 fl (80-97); PLATELET COUNT 294 10^3/uL (150-450); RED BLOOD COUNT 4.24 10^6/uL (3.72-5.28); WHITE BLOOD COUNT 12.1 10^3/uL (4.0-10.5)
[2019-09-07 06:06] LABS: ALBUMIN 4.2 g/dL (3.5-5.0); ALKALINE PHOSPHATASE 59 U/L (38-126); ANION GAP 10 (5-19); ASPARTATE AMINO TRANSFERASE 27 U/L (14-36); BILIRUBIN,DIRECT 0.1 mg/dL (0.0-0.4); BILIRUBIN,TOTAL 0.8 mg/dL (0.2-1.3); BLOOD UREA NITROGEN 20 mg/dL (7-20); CALCIUM 9.6 mg/dL (8.4-10.2); CARBON DIOXIDE 26 mmol/L (22-30); CHLORIDE 102 mmol/L (98-107); CREATINE KINASE 70 U/L (30-135); GLUCOSE 186 mg/dL (75-110); POTASSIUM 3.9 mmol/L (3.6-5.0); TOTAL PROTEIN 7.6 g/dL (6.3-8.2)
[2019-09-07 06:16] LABS: CREATINE KINASE MB 1.91 ng/mL (<4.55); TROPONIN I 0.016 ng/mL
[2019-09-07 06:44] LABS: ABSOLUTE LYMPHOCYTES# (MANUAL) 0.2 10^3/uL (0.5-4.7); ABSOLUTE MONOCYTES # (MANUAL) 0.8 10^3/uL (0.1-1.4); BAND NEUTROPHILS % (MANUAL) 2 % (3-5); BASOPHILS % (MANUAL) 0 % (0-2); EOSINOPHILS % (MANUAL) 0 % (0-6); LYMPHOCYTES % (MANUAL) 2 % (13-45); MONOCYTES % (MANUAL) 7 % (3-13); PLATELET COMMENT ADEQUATE; RBC MORPHOLOGY COMMENT NORMO-CYTIC/CHROMIC; SEGMENTED NEUTROPHILS % (MAN) 89 % (42-78); TOTAL CELLS COUNTED 100
--- NOTE | 2019-09-07 07:19 | EKG REPORT ---
SEVERITY:- NORMAL ECG - SINUS RHYTHM : Confirmed by: Jaquan Charles 07-Sep-2019 07:18:40
[2019-09-07 08:03] LABS: APPEARANCE,URINE SLIGHTLY-CLOUDY; BILIRUBIN,URINE NEGATIVE (NEGATIVE); COLOR,URINE YELLOW; GLUCOSE, URINE NEGATIVE (NEGATIVE); KETONES,URINE NEGATIVE (NEGATIVE); LEUKOCYTE ESTERASE,URINE TRACE (NEGATIVE); NITRITE,URINE POSITIVE (NEGATIVE); PROTEIN,URINE NEGATIVE (NEGATIVE); URINE SPECIFIC GRAVITY 1.012; UROBILINOGEN,URINE NEGATIVE mg/dL (<2.0)
--- NOTE | 2019-09-07 08:57 | RADIOLOGY REPORT (SQ) ---
EXAM DESCRIPTION: KNEE LEFT 4 VIEW COMPLETED DATE/TIME: 09/07/2019 8:24 am REASON FOR STUDY: left knee pain;fall COMPARISON: None. NUMBER OF VIEWS: Four views. TECHNIQUE: AP, lateral, and both oblique radiographic images acquired of the left knee. LIMITATIONS: None. FINDINGS: MINERALIZATION: Osteopenia. BONES: No acute fracture or dislocation. No worrisome bone lesions. JOINT: No effusion. SOFT TISSUES: No soft tissue swelling. No radio-opaque foreign body. OTHER: No other significant finding. IMPRESSION: Osteopenia. No fracture or dislocation of the left knee. No knee joint effusion. TECHNICAL DOCUMENTATION: JOB ID: [id number] [employer]- All Rights Reserved Reading location - IP/workstation name: [email or web address]
[2019-09-07] MEDS ORDERED: PROMETHAZINE HCL INJ 25 MG/1 ML VIAL IV PRN (11:56)
[2019-09-07] MEDS ORDERED: PROMETHAZINE HCL 25 MG TABLET PO PRN (11:56)
[2019-09-07] MEDS ORDERED: MAGNESIUM HYDROXIDE SUSP 30 ML UDCUP PO PRN (11:56)
[2019-09-07] MEDS ORDERED: MAG HYDROX/AL HYDROX/SIMETH SUSP 30 ML UDCUP PO PRN (11:56)
--- NOTE | 2019-09-07 12:25 | PDOC H&P ---
History of Present Illness Admission Date/PCP: 09/07/19 11:02 IBAN CASTELAN MD History of Present Illness: WARREN FARRIS is a 84 year old female who was admitted for frequent falls, UTI, left hip pain. She was in the emergency room yesterday after having climbed up on a chair and then falling off the chair. At that time patient was complaining of left hip pain in the left hip and pelvis was x-rayed and then a CT scan of the left lower extremity was performed, sign of fracture was seen. She returns emergency room because she has fallen because of left leg weakness.. Patient had a stroke 10 years ago that left her with left-sided weakness. She would like to go to either assisted living or rehab upon discharge from the hospital. Patient has continued left hip pain and left leg pain patient is complaining of frequent urination for the last 2 weeks Patient basically lives alone. Past Medical History Cardiac Medical History: Reports: Myocardial Infarction - ? YEARS AGO, Hyperlipidema, Hypertension - CONTROLLED WITH MEDS Pulmonary Medical History: Denies: Asthma Neurological Medical History: Denies: Seizures Endocrine Medical History: Reports: Diabetes Mellitus Type 2 Malignancy Medical History: Reports: Breast Cancer GI Medical History: Denies: Hepatitis, Hiatal Hernia Psychiatric Medical History: Denies: Depression Hematology: Denies: Anemia, Sickle Cell Disease Past Surgical History Past Surgical History: Reports: Mastectomy - RT BREAST, SIDE IS RESTRICTED, Orthopedic Surgery - left hip Denies: Amputation, Hysterectomy, Pacemaker Social History Smoking Status: Never Smoker Frequency of Alcohol Use: None Hx Recreational Drug Use: No Drugs: None Hx Prescription Drug Abuse: No - Advance Directive Resuscitation Status: Do Not Resuscitate Family History Family History: Reviewed & Not Pertinent Parental Family History Reviewed: No Children Family History Reviewed: No Sibling(s) Family History Reviewed.: No Medication/Allergy Home Medications: Simvastatin [Zocor 20 mg Tablet] 20 mg PO QHS 04/10/12 Solifenacin Succinate [Vesicare] 10 mg PO DAILY 04/10/12 Docusate Sodium [Colace 100 mg Capsule] 100 mg PO BID 03/07/14 Cholecalciferol (Vitamin D3) [D3-2000] 2,000 unit PO DAILY 04/19/17 Cyanocobalamin (Vitamin B-12) [Vitamin B-12] 500 mg PO DAILY 04/19/17 Ibandronate Sodium [Boniva] 150 mg PO [id number] 04/19/17 Metformin HCl [Glucophage] 500 mg PO DAILY 04/19/17 Metoprolol Succinate 25 mg PO BID 04/19/17 Amlodipine Besylate [Norvasc 10 mg Tablet] 10 mg PO DAILY #30 tablet 04/22/17 Aspirin [Aspirin 325 mg Tablet] 325 mg PO DAILY tablet 04/22/17 Ciprofloxacin HCl [Cipro 500 mg Tablet] 500 mg PO BID #10 tablet 04/22/17 Hydralazine HCl 50 mg PO TID #90 tablet 04/22/17 Losartan Potassium [Cozaar 50 mg Tablet] 50 mg PO Q12 #60 tablet 04/22/17 Allergies/Adverse Reactions: erythromycin base [Erythromycin Base] Allergy (Severe, Verified 03/05/14 15:29) cortisone [Cortisone] Allergy (Intermediate, Verified 03/05/14 15:29) Sulfa (Sulfonamide Antibiotics) Allergy (Intermediate, Verified 03/05/14 15:29) diazepam [From Valium] Adverse Reaction (Unknown, Verified 03/05/14 15:29) Delirium Review of Systems Constitutional: ABSENT: chills, fever(s), headache(s), weight gain, weight loss Cardiovascular: ABSENT: chest pain, dyspnea on exertion, edema, orthropnea, palpitations Respiratory: ABSENT: cough, hemoptysis Gastrointestinal: ABSENT: abdominal pain, constipation, diarrhea, hematemesis, hematochezia, nausea, vomiting Genitourinary: PRESENT: other - Urination no dysuria Musculoskeletal: PRESENT: other - To pain Neurological: ABSENT: abnormal gait, abnormal speech, confusion, dizziness, focal weakness, syncope Psychiatric: ABSENT: anxiety, depression, homidical ideation, suicidal ideation Physical Exam Vital Signs: Temp Pulse Resp BP Pulse Ox 98.2 F 69 16 147/75 H 95 09/07/19 11:55 09/07/19 04:01 09/07/19 04:01 09/07/19 11:01 09/07/19 11:01 Intake & Output 09/06/19 09/07/19 09/08/19 06:59 06:59 06:59 Weight 65 kg General appearance: PRESENT: mild distress, other - Left hip pain Respiratory exam: PRESENT: clear to auscultation jose enrique. ABSENT: rales, rhonchi, wheezes Cardiovascular exam: PRESENT: RRR. ABSENT: diastolic murmur, rubs, systolic murmur GI/Abdominal exam: PRESENT: normal bowel sounds, soft. ABSENT: distended, guarding, mass, organolmegaly, rebound, tenderness Extremities exam: PRESENT: tenderness - Some tenderness to palpation to the left greater trochanteric area, x-rays are reviewed negative, other - Bruising of the left hip Neurological exam: PRESENT: alert, awake, oriented to person, oriented to place, oriented to time, oriented to situation, CN II-XII grossly intact. ABSENT: motor sensory deficit Psychiatric exam: PRESENT: appropriate affect, normal mood. ABSENT: homicidal ideation, suicidal ideation Results Laboratory Results: 09/07/19 05:30 09/07/19 05:30 09/07/19 09/07/19 09/07/19 05:30 05:30 07:44 WBC 12.1 H RBC 4.24 Hgb 13.7 Hct 40.9 MCV 96 MCH 32.3 MCHC 33.6 RDW 13.0 Plt Count 294 Seg Neutrophils % Not Reportable Sodium 137.6 Potassium 3.9 Chloride 102 Carbon Dioxide 26 Anion Gap 10 BUN 20 Creatinine 0.67 Est GFR ( Amer) > 60 Glucose 186 H Calcium 9.6 Total Bilirubin 0.8 AST 27 Alkaline Phosphatase 59 Total Protein 7.6 Albumin 4.2 Urine Color YELLOW Urine Appearance SLIGHTLY-CLOUDY Urine pH 6.0 Ur Specific Watson 1.012 Urine Protein NEGATIVE Urine Glucose (UA) NEGATIVE Urine Ketones NEGATIVE Urine Blood NEGATIVE Urine Nitrite POSITIVE H Ur Leukocyte Esterase TRACE H Urine WBC (Auto) 5 Urine RBC (Auto) 1 09/07/19 09/07/19 09/07/19 05:30 05:30 08:05 Creatine Kinase 70 CK-MB (CK-2) 1.91 Troponin I 0.016 Cancelled 09/07/19 09:30 Creatine Kinase CK-MB (CK-2) Troponin I 0.022 Impressions: Chest X-Ray 09/07/19 04:53 IMPRESSION: No acute cardiopulmonary process copyright 2011 [employer]- All Rights Reserved Knee X-Ray 09/07/19 08:02 IMPRESSION: Osteopenia. No fracture or dislocation of the left knee. No knee joint effusion. Assessment and Plan - Diagnosis (1) Frequent falls Is this a current diagnosis for this admission?: Yes (2) Generalized weakness Is this a current diagnosis for this admission?: Yes (3) UTI (urinary tract infection) Qualifiers: Urinary tract infection type: site unspecified Hematuria presence: without hematuria Qualified Code(s): N39.0 - Urinary tract infection, site not specified Is this a current diagnosis for this admission?: Yes (4) DM2 (diabetes mellitus, type 2) Qualifiers: Diabetes mellitus manager long term care insulin use: without snf use Diabetes mellitus complication status: with unspecified complications Is this a current diagnosis for this admission?: Yes - Plan Summary Summary: 09/06/2019 She will be admitted for IV fluids, IV antibiotics, physical therapy consult and possible placement issues. - Time Time Spent with patient: 35 or more minutes - Patient's son was in the room during the history and physical
[2019-09-07] MEDS: NORMAL SALINE 1000 ML 1,000 ML IV PRN ×2 (12:58→23:55)
[2019-09-07] MEDS: ACETAMINOPHEN 325 MG TABLET PO PRN (21:31)
[2019-09-07] MEDS: FAMOTIDINE 20 MG TABLET PO SCH (21:31)
[2019-09-08 04:31] LABS: ABSOLUTE BASOPHILS # (AUTO) 0.1 10^3/uL (0.0-0.2); ABSOLUTE EOSINOPHILS # (AUTO) 0.5 10^3/uL (0.0-0.6); ABSOLUTE LYMPHOCYTES (AUTO) 1.1 10^3/uL (0.5-4.7); ABSOLUTE MONOCYTES (AUTO) 0.8 10^3/uL (0.1-1.4); ABSOLUTE NEUT (AUTO) 5.3 10^3/uL (1.7-8.2); BASOPHILS % (AUTO) 1.1 % (0-2); EOSINOPHILS % (AUTO) 6.7 % (0-6); HEMATOCRIT 40.2 % (36.0-47.0); HEMOGLOBIN 13.4 g/dL (12.0-15.5); LYMPHOCYTES % (AUTO) 13.8 % (13-45); MEAN CORPUSCULAR HEMOGLOBIN 32.2 pg (27.0-33.4); MEAN CORPUSCULAR HGB CONC 33.3 g/dL (32.0-36.0); MEAN CORPUSCULAR VOLUME 97 fl (80-97); MONOCYTES % (AUTO) 9.9 % (3-13); PLATELET COUNT 246 10^3/uL (150-450); RED BLOOD COUNT 4.14 10^6/uL (3.72-5.28); RED CELL DISTRIBUTION WIDTH 12.9 % (11.5-14.0); SEGMENTED NEUTROPHILS % (AUTO) 68.5 % (42-78); TOTAL CELLS COUNTED % (AUTO) 100 %; WHITE BLOOD COUNT 7.7 10^3/uL (4.0-10.5)
[2019-09-08 04:49] LABS: ANION GAP 10 (5-19); BLOOD UREA NITROGEN 12 mg/dL (7-20); CALCIUM 8.8 mg/dL (8.4-10.2); CARBON DIOXIDE 23 mmol/L (22-30); CHLORIDE 107 mmol/L (98-107); GLUCOSE 119 mg/dL (75-110); POTASSIUM 3.6 mmol/L (3.6-5.0)
[2019-09-08] MEDS: HYDRALAZINE HCL 50 MG TABLET PO SCH ×3 (05:24→21:27)
[2019-09-08] MEDS: NORMAL SALINE 1000 ML 1,000 ML IV PRN ×2 (09:04→16:55)
[2019-09-08] MEDS ORDERED: DOCUSATE SODIUM 100 MG CAPSULE PO SCH (10:00)
[2019-09-08] MEDS: ASPIRIN 81 MG TABLET, ENT COATED PO SCH (12:20)
[2019-09-08] MEDS: METFORMIN HCL 500 MG TABLET PO SCH (12:20)
[2019-09-08] MEDS: AMLODIPINE BESYLATE 10 MG TABLET PO SCH (12:20)
[2019-09-08] MEDS: FAMOTIDINE 20 MG TABLET PO SCH ×2 (12:20→21:27)
[2019-09-08] MEDS: METOPROLOL SUCCINATE 25 MG TAB.SR.24H PO SCH ×2 (12:21→21:27)
[2019-09-08] MEDS: CYANOCOBALAMIN (VITAMIN B-12) 1,000 MCG TABLET PO SCH (12:21)
[2019-09-08] MEDS: CHOLECALCIFEROL (D3) 1,000 UNIT (25 MCG) TABLET PO SCH (12:21)
[2019-09-08] MEDS: ENOXAPARIN SODIUM INJ 40 MG/0.4 ML DISP.SYRIN SUBCUT SCH (12:21)
[2019-09-08] MEDS: LOSARTAN POTASSIUM 50 MG TABLET PO SCH ×2 (12:21→21:28)
[2019-09-08] MEDS: DOCUSATE SODIUM 100 MG CAPSULE PO SCH (12:21)
[2019-09-08] MEDS: OXYBUTYNIN CHLORIDE 5 MG TABLET PO SCH ×2 (12:22→17:06)
--- NOTE | 2019-09-08 15:53 | PDOC PROGRESS REPORT ---
Subjective Progress Note for:: 09/08/19 Subjective:: She was admitted yesterday through the ER for frequent falls and a UTI and left hip pain. Reason For Visit: FREQUENT FALLS, UTI, LEFT HIP PAIN,DIABETES, Physical Exam Vital Signs: Temp Pulse Resp BP Pulse Ox 98.4 F 70 17 149/71 H 97 09/08/19 08:14 09/08/19 08:14 09/08/19 08:14 09/08/19 08:14 09/08/19 08:14 Intake & Output 09/07/19 09/08/19 09/09/19 06:59 06:59 06:59 Intake Total 1450 915 Output Total 2600 Balance -1150 915 Weight 65 kg 61.2 kg General appearance: PRESENT: mild distress, other - In Jose to bruising of the left hip and soft tissue Respiratory exam: PRESENT: clear to auscultation jose enrique. ABSENT: rales, rhonchi, wheezes Cardiovascular exam: PRESENT: RRR. ABSENT: diastolic murmur, rubs, systolic murmur Neurological exam: PRESENT: alert, awake, oriented to person, oriented to place, oriented to time, oriented to situation, CN II-XII grossly intact. ABSENT: motor sensory deficit Psychiatric exam: PRESENT: appropriate affect, normal mood. ABSENT: homicidal ideation, suicidal ideation Results Laboratory Results: 09/08/19 03:46 09/08/19 03:46 09/08/19 09/08/19 03:46 03:46 WBC 7.7 RBC 4.14 Hgb 13.4 Hct 40.2 MCV 97 MCH 32.2 MCHC 33.3 RDW 12.9 Plt Count 246 Seg Neutrophils % 68.5 Sodium 140.3 Potassium 3.6 Chloride 107 Carbon Dioxide 23 Anion Gap 10 BUN 12 Creatinine 0.57 Est GFR ( Amer) > 60 Glucose 119 H Calcium 8.8 Magnesium 2.1 09/07/19 09/07/19 09/07/19 05:30 05:30 08:05 Creatine Kinase 70 CK-MB (CK-2) 1.91 Troponin I 0.016 Cancelled 09/07/19 09:30 Creatine Kinase CK-MB (CK-2) Troponin I 0.022 Impressions: Chest X-Ray 09/07/19 04:53 IMPRESSION: No acute cardiopulmonary process copyright 2011 [employer]- All Rights Reserved Knee X-Ray 09/07/19 08:02 IMPRESSION: Osteopenia. No fracture or dislocation of the left knee. No knee joint effusion. Assessment and Plan - Diagnosis (1) Frequent falls Is this a current diagnosis for this admission?: Yes (2) Generalized weakness Is this a current diagnosis for this admission?: Yes (3) UTI (urinary tract infection) Qualifiers: Urinary tract infection type: site unspecified Hematuria presence: without hematuria Qualified Code(s): N39.0 - Urinary tract infection, site not specified Is this a current diagnosis for this admission?: Yes (4) DM2 (diabetes mellitus, type 2) Qualifiers: Diabetes mellitus halfway insulin use: without ferry terminal supervisor use Diabetes mellitus complication status: with unspecified complications Is this a current diagnosis for this admission?: Yes - Plan Summary Summary: 09/06/2019 She will be admitted for IV fluids, IV antibiotics, physical therapy consult and possible placement issues. 09/08/2019 Patient is doing much better, more alert, less hip pain. Blood pressure 149/71, temperature 98.4, pulse 70 and regular, O2 sat 97% on room air. White count normal 7.7 H&H is stable, lecture lites are normal BUN of 12 creatinine 0.57 Urine culture is pending, pending on these results will possibly start a ntibiotics - Time Time Spent with patient: 15-24 minutes
[2019-09-08] MEDS: ACETAMINOPHEN 325 MG TABLET PO PRN (17:09)
[2019-09-08] MEDS: ACETAMINOPHEN 325 MG TABLET PO SCH (21:27)
[2019-09-09] MEDS: HYDRALAZINE HCL 50 MG TABLET PO SCH ×3 (06:07→21:09)
[2019-09-09] MEDS: NORMAL SALINE 1000 ML 1,000 ML IV PRN ×3 (06:09→17:49)
[2019-09-09] MEDS: OXYBUTYNIN CHLORIDE 5 MG TABLET PO SCH ×2 (09:31→17:44)
[2019-09-09] MEDS: ASPIRIN 81 MG TABLET, ENT COATED PO SCH (09:31)
[2019-09-09] MEDS: CYANOCOBALAMIN (VITAMIN B-12) 1,000 MCG TABLET PO SCH (09:31)
[2019-09-09] MEDS: AMLODIPINE BESYLATE 10 MG TABLET PO SCH (09:32)
[2019-09-09] MEDS: CHOLECALCIFEROL (D3) 1,000 UNIT (25 MCG) TABLET PO SCH (09:32)
[2019-09-09] MEDS: LOSARTAN POTASSIUM 50 MG TABLET PO SCH ×2 (09:32→21:10)
[2019-09-09] MEDS: DOCUSATE SODIUM 100 MG CAPSULE PO SCH (09:33)
[2019-09-09] MEDS: METOPROLOL SUCCINATE 25 MG TAB.SR.24H PO SCH ×2 (09:33→21:09)
[2019-09-09] MEDS: ENOXAPARIN SODIUM INJ 40 MG/0.4 ML DISP.SYRIN SUBCUT SCH (09:33)
[2019-09-09] MEDS: METFORMIN HCL 500 MG TABLET PO SCH (09:33)
[2019-09-09] MEDS: FAMOTIDINE 20 MG TABLET PO SCH ×2 (09:33→21:09)
[2019-09-09] MEDS: ACETAMINOPHEN 325 MG TABLET PO PRN (09:40)
[2019-09-09] MEDS: CIPROFLOXACIN HCL 500 MG TABLET PO SCH ×2 (11:14→21:09)
--- NOTE | 2019-09-09 13:21 | PDOC PROGRESS REPORT ---
Subjective Progress Note for:: 09/09/19 Subjective:: She was admitted yesterday through the ER for frequent falls and a UTI and left hip pain. 09/09/2019 Patient's urine is growing out Klebsiella and Pseudomonas, both are sensitive to Cipro which is what she is on Physical therapy has been ordered for today Reason For Visit: FREQUENT FALLS, UTI, LEFT HIP PAIN,DIABETES, Physical Exam Vital Signs: Temp Pulse Resp BP Pulse Ox 98.7 F 65 18 148/63 H 94 09/09/19 10:51 09/09/19 10:51 09/09/19 10:51 09/09/19 10:51 09/09/19 10:51 Intake & Output 09/08/19 09/09/19 09/10/19 06:59 06:59 06:59 Intake Total 1450 3700 607 Output Total 2600 3600 1350 Balance -1150 100 -743 Weight 61.2 kg 61.9 kg General appearance: PRESENT: no acute distress Respiratory exam: PRESENT: clear to auscultation jose enrique. ABSENT: rales, rhonchi, wheezes Cardiovascular exam: PRESENT: RRR. ABSENT: diastolic murmur, rubs, systolic murmur Neurological exam: PRESENT: alert, awake, oriented to person, oriented to place, oriented to time, oriented to situation, CN II-XII grossly intact, other - No signs of dementia. ABSENT: motor sensory deficit Psychiatric exam: PRESENT: appropriate affect, normal mood. ABSENT: homicidal ideation, suicidal ideation Results Laboratory Results: 09/08/19 03:46 09/08/19 03:46 09/07/19 07:44 Catheterized Urine Urine Culture - Final Klebsiella Pneumoniae Pseudomonas Aeruginosa 09/07/19 09/07/19 09/07/19 05:30 05:30 08:05 Creatine Kinase 70 CK-MB (CK-2) 1.91 Troponin I 0.016 Cancelled 09/07/19 09:30 Creatine Kinase CK-MB (CK-2) Troponin I 0.022 Impressions: Chest X-Ray 09/07/19 04:53 IMPRESSION: No acute cardiopulmonary process copyright 2010 [employer]- All Rights Reserved Knee X-Ray 09/07/19 08:02 IMPRESSION: Osteopenia. No fracture or dislocation of the left knee. No knee joint effusion. Assessment and Plan - Diagnosis (1) Frequent falls Is this a current diagnosis for this admission?: Yes (2) Generalized weakness Is this a current diagnosis for this admission?: Yes (3) UTI (urinary tract infection) Qualifiers: Urinary tract infection type: site unspecified Hematuria presence: without hematuria Qualified Code(s): N39.0 - Urinary tract infection, site not specified Is this a current diagnosis for this admission?: Yes (4) DM2 (diabetes mellitus, type 2) Qualifiers: Diabetes mellitus custodial insulin use: without custodial use Diabetes mellitus complication status: with unspecified complications Is this a current diagnosis for this admission?: Yes - Plan Summary Summary: 09/06/2019 She will be admitted for IV fluids, IV antibiotics, physical therapy consult and possible placement issues. 09/08/2019 Patient is doing much better, more alert, less hip pain. Blood pressure 149/71, temperature 98.4, pulse 70 and regular, O2 sat 97% on room air. White count normal 7.7 H&H is stable, lecture lites are normal BUN of 12 creatinine 0.57 Urine culture is pending, pending on these results will possibly start antibiotics 09/09/2019 CBC is normal, electrolytes are normal, blood sugars are well controlled. I will see him and magnesium levels are normal Hopefully patient can be discharged home tomorrow with home health and physical therapy - Time Time Spent with patient: 15-24 minutes
[2019-09-09] MEDS: ACETAMINOPHEN 325 MG TABLET PO SCH (21:10)
[2019-09-10] MEDS: HYDRALAZINE HCL 50 MG TABLET PO SCH ×2 (05:33→13:12)
[2019-09-10] MEDS: NORMAL SALINE 1000 ML 1,000 ML IV PRN (05:33)
[2019-09-10] MEDS: AMLODIPINE BESYLATE 10 MG TABLET PO SCH (09:23)
[2019-09-10] MEDS: DOCUSATE SODIUM 100 MG CAPSULE PO SCH (09:24)
[2019-09-10] MEDS: ASPIRIN 81 MG TABLET, ENT COATED PO SCH (09:24)
[2019-09-10] MEDS: CIPROFLOXACIN HCL 500 MG TABLET PO SCH (09:24)
[2019-09-10] MEDS: METFORMIN HCL 500 MG TABLET PO SCH (09:24)
[2019-09-10] MEDS: OXYBUTYNIN CHLORIDE 5 MG TABLET PO SCH ×2 (09:24→17:15)
[2019-09-10] MEDS: LOSARTAN POTASSIUM 50 MG TABLET PO SCH (09:25)
[2019-09-10] MEDS: CHOLECALCIFEROL (D3) 1,000 UNIT (25 MCG) TABLET PO SCH (09:26)
[2019-09-10] MEDS: METOPROLOL SUCCINATE 25 MG TAB.SR.24H PO SCH (09:26)
[2019-09-10] MEDS: FAMOTIDINE 20 MG TABLET PO SCH (09:26)
[2019-09-10] MEDS: CYANOCOBALAMIN (VITAMIN B-12) 1,000 MCG TABLET PO SCH (09:26)
[2019-09-10] MEDS: ENOXAPARIN SODIUM INJ 40 MG/0.4 ML DISP.SYRIN SUBCUT SCH (09:27)
[2019-09-10] MEDS ORDERED: NA PHOS,M-B/NA PHOS,DI-BA (ADULT) 133 ML ENEMA PR PRN (09:28)
[2019-09-10] MEDS ORDERED: POLYETHYLENE GLYCOL 3350 POWDER 17 GM/1 PACKET PO SCH (10:00)
--- NOTE | 2019-09-10 16:18 | PDOC DISCHARGE SUMMARY ---
Impression - Admit/DC Date/PCP Admission Date/Primary Care Provider: 09/07/19 11:02 IBAN CASTELAN MD Discharge Date: 09/10/19 - Discharge Diagnosis (1) Frequent falls Is this a current diagnosis for this admission?: Yes (2) Generalized weakness Is this a current diagnosis for this admission?: Yes (3) UTI (urinary tract infection) Is this a current diagnosis for this admission?: Yes (4) DM2 (diabetes mellitus, type 2) Is this a current diagnosis for this admission?: Yes (5) Hypertension Is this a current diagnosis for this admission?: Yes (6) Hyperlipidemia Is this a current diagnosis for this admission?: Yes (7) Status post CVA Is this a current diagnosis for this admission?: Yes - Assessment Summary: 09/06/2019 She will be admitted for IV fluids, IV antibiotics, physical therapy consult and possible placement issues. 09/08/2019 Patient is doing much better, more alert, less hip pain. Blood pressure 149/71, temperature 98.4, pulse 70 and regular, O2 sat 97% on room air. White count normal 7.7 H&H is stable, electrolytes are normal BUN of 12 creatinine 0.57 Urine culture is pending, pending on these results will possibly start antibiotics 09/09/2019 CBC is normal, electrolytes are normal, blood sugars are well controlled. I will see him and magnesium levels are normal Hopefully patient can be discharged home tomorrow with home health and physical therapy. I agree with home health. 09/10/2019 Patient was admitted to the hospital for frequent falls and UTI. Talking to family members it sounds like patient has had deteriorating health for the last 5 years. She try to get her into a shelter facility or assisted living facility several years ago but she did not qualify financially. It is now getting to the point where patient cannot live alone, evidently, patient does not have Medicaid, family has been reluctant to pay for her to go into a facility. Prior to discharge patient advocate has been involved, discharge planning has been involved, hospital admission to now have also been involved, as well as nursing. . We have arranged for transportation for patient to go home. Discharge planning has arranged for home health occupational health physical therapy to be provided to patient. She is being sent home with a prescription for Cipro 250 mg 14 tablets. She was already on blood pressure medication prior to admission, as well as medication for her diabetes. Patient will follow-up with her primary care provider who she just saw about 3 weeks ago, overall on Freida Iqbal. Lisa #1 his UTI #2 his frequent falls #3 status post CVA, before hypertension #5 hyperlipidemia #6 diabetes - Additional Information Resuscitation Status: Do Not Resuscitate Discharge Diet: As Tolerated Discharge Activity: Balance Activity w/Rest, No Lifting Over 10 Pounds, No Lifting/Push/Pulling Referrals: IBAN CASTELAN MD [Primary Care Provider] - Follow up as needed Prescriptions: Ciprofloxacin HCl [Cipro 500 mg Tablet] 250 mg PO Q12 #14 tablet Home Medications: Simvastatin [Zocor 20 mg Tablet] 20 mg PO QHS 04/10/12 Metformin HCl [Glucophage] 500 mg PO DAILY 04/19/17 Metoprolol Succinate 25 mg PO Q12 04/19/17 Amlodipine Besylate [Norvasc 10 mg Tablet] 10 mg PO DAILY #30 tablet 04/22/17 Losartan Potassium [Cozaar 50 mg Tablet] 50 mg PO Q12 #60 tablet 04/22/17 Acetaminophen [Tylenol Extra Strength 500 mg Tablet] 1,000 mg PO QHS 09/07/19 Acetaminophen [Tylenol Extra Strength 500 mg Tablet] 500 mg PO BID@09/07/19 Aspirin [Ecotrin 81 mg EC Tablet] 81 mg PO DAILY 09/07/19 Cholecalciferol (Vitamin D3) [Vitamin D3 5000 unit Capsule] 5,000 unit PO DAILY 09/07/19 Cyanocobalamin (Vitamin B-12) [Vitamin B-12] 1,000 mcg PO DAILY 09/07/19 Docusate Sodium [Colace 100 mg Capsule] 100 mg PO DAILY 09/07/19 Hydralazine HCl 50 mg PO Q8 09/07/19 Oxybutynin Chloride [Oxybutynin Chloride ER] 10 mg PO DAILY 09/07/19 Ciprofloxacin HCl [Cipro 500 mg Tablet] 250 mg PO Q12 #14 tablet 09/10/19 Polyethylene Glycol 3350 [Miralax Powder 17 gm/Packet] 17 gm PO DAILY powd.pack 09/10/19 History of Present Illiness History of Present Illness: WARREN FARRIS is a 84 year old female who was admitted for frequent falls, UTI, left hip pain. She was in the emergency room yesterday after having climbed up on a chair and then falling off the chair. At that time patient was complaining of left hip pain in the left hip and pelvis was x-rayed and then a CT scan of the left lower extremity was performed, sign of fracture was seen. She returns emergency room because she has fallen because of left leg weakness.. Patient had a stroke 10 years ago that left her with left-sided weakness. She would like to go to either assisted living or rehab upon discharge from the hospital. Patient has continued left hip pain and left leg pain patient is complaining of frequent urination for the last 2 weeks Patient basically lives alone. Physical Exam Vital Signs: Temp Pulse Resp BP Pulse Ox 98.2 F 63 16 156/68 H 97 09/10/19 07:41 09/10/19 07:41 09/10/19 07:41 09/10/19 07:41 09/10/19 07:41 Intake & Output 09/09/19 09/10/19 09/11/19 06:59 06:59 06:59 Intake Total 3700 3749 Output Total 3600 4100 Balance 100 -351 Weight 61.9 kg 63.6 kg Results Laboratory Results: WBC 7.7 10^3/uL (4.0-10.5) 09/08/19 03:46 RBC 4.14 10^6/uL (3.72-5.28) 09/08/19 03:46 Hgb 13.4 g/dL (12.0-15.5) 09/08/19 03:46 Hct 40.2 % (36.0-47.0) 09/08/19 03:46 MCV 97 fl (80-97) 09/08/19 03:46 MCH 32.2 pg (27.0-33.4) 09/08/19 03:46 MCHC 33.3 g/dL (32.0-36.0) 09/08/19 03:46 RDW 12.9 % (11.5-14.0) 09/08/19 03:46 Plt Count 246 10^3/uL (150-450) 09/08/19 03:46 Lymph % (Auto) 13.8 % (13-45) 09/08/19 03:46 Norton % (Auto) 9.9 % (3-13) 09/08/19 03:46 Eos % (Auto) 6.7 % (0-6) H 09/08/19 03:46 Baso % (Auto) 1.1 % (0-2) 09/08/19 03:46 Absolute Neuts (auto) 5.3 10^3/uL (1.7-8.2) 09/08/19 03:46 Absolute Lymphs (auto) 1.1 10^3/uL (0.5-4.7) 09/08/19 03:46 Absolute Monos (auto) 0.8 10^3/uL (0.1-1.4) 09/08/19 03:46 Absolute Eos (auto) 0.5 10^3/uL (0.0-0.6) 09/08/19 03:46 Absolute Basos (auto) 0.1 10^3/uL (0.0-0.2) 09/08/19 03:46 Total Counted 100 09/07/19 05:30 Seg Neutrophils % 68.5 % (42-78) 09/08/19 03:46 Seg Neuts % (Manual) 89 % (42-78) H 09/07/19 05:30 Band Neutrophils % 2 % (3-5) L 09/07/19 05:30 Lymphocytes % (Manual) 2 % (13-45) L 09/07/19 05:30 Monocytes % (Manual) 7 % (3-13) 09/07/19 05:30 Eosinophils % (Manual) 0 % (0-6) 09/07/19 05:30 Basophils % (Manual) 0 % (0-2) 09/07/19 05:30 Abs Neuts (Manual) 11.0 10^3/uL (1.7-8.2) H 09/07/19 05:30 Abs Lymphs (Manual) 0.2 10^3/uL (0.5-4.7) L 09/07/19 05:30 Abs Monocytes (Manual) 0.8 10^3/uL (0.1-1.4) 09/07/19 05:30 Absolute Eos (Manual) 0.0 10^3/uL (0.0-0.6) 09/07/19 05:30 Abs Basophils (Manual) 0.0 10^3/uL (0.0-0.2) 09/07/19 05:30 Platelet Comment ADEQUATE 09/07/19 05:30 RBC Morph Comment NORMO-CYTIC/CHROMIC 09/07/19 05:30 Sodium 140.3 mmol/L (137-145) 09/08/19 03:46 Potassium 3.6 mmol/L (3.6-5.0) 09/08/19 03:46 Chloride 107 mmol/L (98-107) 09/08/19 03:46 Carbon Dioxide 23 mmol/L (22-30) 09/08/19 03:46 Anion Gap 10 (5-19) 09/08/19 03:46 BUN 12 mg/dL (7-20) 09/08/19 03:46 Creatinine 0.57 mg/dL (0.52-1.25) 09/08/19 03:46 Est GFR ( Amer) > 60 (>60) 09/08/19 03:46 Est GFR (MDRD) Non-Af > 60 (>60) 09/08/19 03:46 Glucose 119 mg/dL (75-110) H 09/08/19 03:46 POC Glucose 113 mg/dL (70-110) H 09/08/19 21:05 Calcium 8.8 mg/dL (8.4-10.2) 09/08/19 03:46 Magnesium 2.1 mg/dL (1.6-2.3) 09/08/19 03:46 Total Bilirubin 0.8 mg/dL (0.2-1.3) 09/07/19 05:30 Direct Bilirubin 0.1 mg/dL (0.0-0.4) 09/07/19 05:30 Neonat Total Bilirubin Not Reportable 09/07/19 05:30 Neonat Direct Bilirubin Not Reportable 09/07/19 05:30 Neonat Indirect Bili Not Reportable 09/07/19 05:30 AST 27 U/L (14-36) 09/07/19 05:30 ALT 22 U/L (<35) 09/07/19 05:30 Alkaline Phosphatase 59 U/L (38-126) 09/07/19 05:30 Creatine Kinase 70 U/L (30-135) 09/07/19 05:30 CK-MB (CK-2) 1.91 ng/mL (<4.55) 09/07/19 05:30 Troponin I 0.022 ng/mL 09/07/19 09:30 Total Protein 7.6 g/dL (6.3-8.2) 09/07/19 05:30 Albumin 4.2 g/dL (3.5-5.0) 09/07/19 05:30 Urine Color YELLOW 09/07/19 07:44 Urine Appearance SLIGHTLY-CLOUDY 09/07/19 07:44 Urine pH 6.0 (5.0-9.0) 09/07/19 07:44 Ur Specific [place] 1.012 09/07/19 07:44 Urine Protein NEGATIVE mg/dL (NEGATIVE) 09/07/19 07:44 Urine Glucose (UA) NEGATIVE mg/dL (NEGATIVE) 09/07/19 07:44 Urine Ketones NEGATIVE mg/dL (NEGATIVE) 09/07/19 07:44 Urine Blood NEGATIVE (NEGATIVE) 09/07/19 07:44 Urine Nitrite POSITIVE (NEGATIVE) H 09/07/19 07:44 Urine Bilirubin NEGATIVE (NEGATIVE) 09/07/19 07:44 Urine Urobilinogen NEGATIVE mg/dL (<2.0) 09/07/19 07:44 Ur Leukocyte Esterase TRACE (NEGATIVE) H 09/07/19 07:44 Urine WBC (Auto) 5 /HPF 09/07/19 07:44 Urine RBC (Auto) 1 /HPF 09/07/19 07:44 Urine Bacteria (Auto) 2+ /HPF 09/07/19 07:44 Squamous Epi Cells Auto 6 /HPF 09/07/19 07:44 Urine Ascorbic Acid NEGATIVE (NEGATIVE) 09/07/19 07:44 09/07/19 09/07/19 09/07/19 05:30 08:05 09:30 CK-MB (CK-2) 1.91 Troponin I 0.016 Cancelled 0.022 Impressions: Chest X-Ray 09/07/19 04:53 IMPRESSION: No acute cardiopulmonary process copyright 2011 [employer]- All Rights Reserved Knee X-Ray 09/07/19 08:02 IMPRESSION: Osteopenia. No fracture or dislocation of the left knee. No knee joint effusion. Stroke Is this a Stroke Patient?: No Acute Heart Failure - Is this a Heart Failure Patient?: No
[2019-09-10 16:34] VITALS: BP 144/63
== END 2019-09-10 19:45 | disposition home or self-care (01) ==
LOC: ER 03:53 → EH 11:02 → OBSVTOIN 11:46 → INTOOBSV 11:46 → 4S 21:00
PROVIDERS: ADMIT Hospitalist; ATTEND Hospitalist
DX: N39.0 Urinary tract infection, site not specified (principal); R29.6 Repeated falls; E11.9 Type 2 diabetes mellitus without complications; I10 Essential (primary) hypertension; E78.5 Hyperlipidemia, unspecified; M25.552 Pain in left hip; I69.354 Hemiplegia and hemiparesis following cerebral infarction affecting left non-dominant side; W17.89XA Other fall from one level to another, initial encounter; Y93.9 Activity, unspecified; Y92.019 Unspecified place in single-family (private) house as the place of occurrence of the external cause; I25.2 Old myocardial infarction; B96.1 Klebsiella pneumoniae [K. pneumoniae] as the cause of diseases classified elsewhere; B96.5 Pseudomonas (aeruginosa) (mallei) (pseudomallei) as the cause of diseases classified elsewhere; Z66 Do not resuscitate; Z79.84 Long term (current) use of oral hypoglycemic drugs; Z79.82 Long term (current) use of aspirin; Z91.81 History of falling; Z85.3 Personal history of malignant neoplasm of breast; Z90.11 Acquired absence of right breast and nipple; Z88.2 Allergy status to sulfonamides; Z88.8 Allergy status to other drugs, medicaments and biological substances
CPT/HCPCS: 93005; 99284; 36415 ×2; 87086; 82553; 82962 ×2; 82550; 83735; 85025 ×2; 87088; 80048; 80053; 81001; 84484; 87186; 71045; 73564; 93010; 97530; 97110; 97116; 97163; G0378 ×5; A9270 ×42; J1650 ×3; J7030 ×4; J3490

== ENCOUNTER → 2019-11-02 | Outpatient (CLI) | payer MEDICARE, BC ==
--- NOTE | 2019-11-02 15:16 | WOMENS IMAGING REPORT ---
EXAM DESCRIPTION: 3D SCREENING MAMMO LEFT COMPLETED DATE/TIME: 11/02/2019 1:17 pm REASON FOR STUDY: Z12.31 SCREENING MAMMO Z12.31 ENCNTR SCREEN MAMMOGRAM FOR MALIGNANT NEOPLASM OF B RE COMPARISON: None. EXAM PARAMETERS: Standard craniocaudal and mediolateral oblique views of the breast recorded using d igital acquisition and breast tomosynthesis. Read with the assistance of CAD. .[facility] - [employer] Version 9.2 LIMITATIONS: None. FINDINGS: BREAST LATERALITY: left No suspicious masses, suspicious calcifications or architectural distortion. No areas of concern. IMPRESSION: NEGATIVE MAMMOGRAM. BIRADS 1. BREAST DENSITY: b. There are scattered areas of fibroglandular density. BIRAD: ASSESSMENT: 1 Negative RECOMMENDATION: RECOMMENDATION: ROUTINE SCREENING. COMMENT: The patient has been notified of the results by letter per MQSA requirements. Additional no tification policies are in place for contacting patient with suspicious or incomplete findings. Quality ID #225: The [employer] recommends an annual screening mammogram for women aged 40 years or over. This facility utilizes a reminder system to ensure that all patients receive reminder letters, and/or direct phone calls for appointments. This includes reminders for routine scr eening mammograms, diagnostic mammograms, or other Breast Imaging Interventions when appropriate. Th is patient will be placed in the appropriate reminder system. TECHNICAL DOCUMENTATION: FINDING NUMBER: (1) ASSESSMENT: (1) JOB ID: [id number] [employer]- All Rights Reserved Reading location - IP/workstation name: [email or web address]
== END ==
LOC: WI 12:35
PROVIDERS: ATTEND Internal Medicine
DX: Z12.31 Encounter for screening mammogram for malignant neoplasm of breast (principal)

== ENCOUNTER 2020-02-28 03:14 | Emergency (ER) | payer MEDICARE, BC ==
--- NOTE | 2020-02-28 03:21 | ER Document Report ---
ED General - General Stated Complaint: LEFT LEG PAIN Time Seen by Provider: 02/28/20 03:18 Primary Care Provider: BELA SANTILLAN MD [ACTIVE STAFF] - Follow up as needed Notes: 84-year-old female presents emergency department via EMS complaining of left hip pain. Patient fell 1 month ago and has had left hip pain since then. Had initial x-ray that was negative but states is been hurting since then. States that it was acutely worse tonight. She tried taking 2 Tylenol but it has not relieved her pain. EMS states that the patient was able to stand and help to walk to the stretcher however she was dragging her left leg. Patient does admit left arm and mild left leg weakness due to a remote stroke. Patient does not feel like her weakness is worse only her pain. Denies any new fall or injury since a month ago. TRAVEL OUTSIDE OF THE [place] IN LAST 30 DAYS: No - Related Data Allergies/Adverse Reactions: erythromycin base [Erythromycin Base] Allergy (Severe, Verified 03/05/14 15:29) cortisone [Cortisone] Allergy (Intermediate, Verified 03/05/14 15:29) Sulfa (Sulfonamide Antibiotics) Allergy (Intermediate, Verified 03/05/14 15:29) diazepam [From Valium] Adverse Reaction (Unknown, Verified 03/05/14 15:29) Delirium Past Medical History - General Information source: Patient, Emergency Med Personnel - Social History Smoking Status: Never Smoker Chew tobacco use (# tins/day): No Frequency of alcohol use: None Drug Abuse: None Family History: Reviewed & Not Pertinent - Past Medical History Cardiac Medical History: Reports: Hx Heart Attack - ? YEARS AGO, Hx Hypercholesterolemia, Hx Hypertension - CONTROLLED WITH MEDS Pulmonary Medical History: Denies: Hx Asthma Neurological Medical History: Reports: Hx Cerebrovascular Accident - 2009 LEFT SIDED WEAKNESS. Denies: Hx Seizures Endocrine Medical History: Reports: Hx Diabetes Mellitus Type 2 Renal/ Medical History: Denies: Hx Peritoneal Dialysis Malignancy Medical History: Reports: Hx Breast Cancer GI Medical History: Denies: Hx Hepatitis, Hx Hiatal Hernia, Hx Ulcer Psychiatric Medical History: Reports: Hx Depression Infectious Medical History: Denies: Hx Hepatitis Past Surgical History: Reports: Hx Mastectomy - RT BREAST, SIDE IS RESTRICTED, Hx Orthopedic Surgery - left hip. Denies: Hx Hysterectomy, Hx Open Heart Surgery, Hx Pacemaker - Immunizations Hx Pneumococcal Vaccination: 04/19/17 Review of Systems - Review of Systems Constitutional: No symptoms reported Cardiovascular: No symptoms reported Respiratory: No symptoms reported Musculoskeletal: See HPI -: Yes All other systems reviewed and negative Physical Exam - Vital signs Vitals: Pulse Ox 100 02/28/20 03:20 - Notes Notes: GENERAL: Alert, interacts well. No acute distress. HEAD: Normocephalic, atraumatic EYES: Pupils equal, round and reactive to light, extraocular movements intact. ENT: Oral mucosa moist, tongue midline. NECK: Full range of motion, supple, trachea midline. LUNGS: Clear to auscultation bilaterally, no wheezes, rales or rhonchi, no respiratory distress. HEART: Regular rate and rhythm, no murmurs, gallops, rubs. ABDOMEN: Soft, nontender, nondistended, bowel sounds present in all 4 quadrants. EXTREMITIES: Left arm contracted consistent with history of stroke, left leg is restricted in internal and external log roll at the level of the hip, complains of pain with logroll, also complains of pain when asked to straighten her leg at the hip. Prefers to sit with her leg flexed at the knee and at the hip on the left. She does complain of tenderness to the greater trochanter and the proxima l femur, no deformity is noted, no bruising is noted, no swelling is noted. No edema, radial and dorsalis pedis pulses 2/4 bilaterally. No cyanosis. NEUROLOGICAL: Alert and oriented x3, normal speech, patellar DTRs 2+ bilaterally. PSYCH: Normal mood, normal affect. SKIN: Warm, Dry, normal turgor. Course - Re-evaluation Re-evalutation: 02/28/20 06:17 Hip X-Ray 02/28/20 03:18 IMPRESSION: No acute findings. I am concerned for occult fracture as this woman has been having a hip pain and pain with ambulation though she is able to ambulate for the past month. CT scan of the left hip was ordered. Results are still pending. If they are negative the patient will be discharged to home and asked to follow-up with orthopedic surgeon as an outpatient, if they are positive then we will discuss with the orthopedic surgeon. Patient is agreeable to this plan. - Vital Signs Vital signs: Temp Pulse Resp BP Pulse Ox 98.8 F 64 20 181/110 H 98 04/09/20 03:28 02/28/20 03:28 02/28/20 03:28 02/28/20 03:28 02/28/20 05:00 Discharge - Discharge Clinical Impression: Left hip pain Condition: Stable Disposition: HOME, SELF-CARE Additional Instructions: I do not know why your left hip continues to hurt a month after you fell. Today your x-rays and your CAT scan did not show any fracture. I would really like you to follow-up with your orthopedic surgeon as an outpatient to discuss why you are continuing to have significant pain. Please return to the emergency department for fever, swelling, redness of the hip or inability to walk. Referrals: BELA SANTILLAN MD [ACTIVE STAFF] - Follow up as needed
--- NOTE | 2020-02-28 04:56 | RADIOLOGY REPORT (SQ) ---
EXAM DESCRIPTION: XR HIP 2 OR MORE VIEWS COMPLETED DATE/TME: 02/28/2020 03:18 CLINICAL HISTORY: 84 years Female, left hip pain, s/p fall COMPARISON: None. Findings: Three screw fixation of the left femoral neck. No evidence of metal fracture or loosening. Chronic deformity of the left paracentral pubic symphysis indicative of prior injury. Bony demineralization. Pessary device. Bones, joints, and soft tissues of the LEFT XR HIP 2 OR MORE VIEWS appear otherwise unremarkable. IMPRESSION: No acute findings.
--- NOTE | 2020-02-28 06:41 | RADIOLOGY REPORT (SQ) ---
EXAM DESCRIPTION: CT LOWER EXTREMITY WITHOUT IV CONTRAST COMPLETED DATE/TME: 02/28/2020 04:57 CLINICAL HISTORY: Pain. 84 years Female, left hip pain since fall x 1 mo COMPARISON: 09/06/19. Same day. Technique: No IV contrast. Coronal and sagittal reformat. 3d reconstruction. This exam was performed according to our departmental dose-optimization program, which includes automated exposure control, adjustment of the mA and/or kV according to patient size and/or use of iterative reconstruction technique. [facility]: Dose Right [facility]: CareDose [facility]: Dose Right [facility]: Teradose 4D [facility]: Actacell LIMITATIONS: None Findings: Three screw fixation of the left femoral neck. Chronic fracture deformity at the posterior aspect of the left femoral head stable compared with prior CT from August 2019. Moderate deformity of the left paracentral pubic symphysis indicative of prior injury. Mild deformity of the anterior left sacrum indicative of prior injury. Pessary. Atherosclerosis. Diverticulosis. Bones, joints, and soft tissues of the CT LOWER EXTREMITY WITHOUT IV CONTRAST appear otherwise unremarkable. IMPRESSION: 1. No acute findings. 2. Three screw fixation of the left femoral neck. 3. Chronic fracture deformity at the posterior aspect of the left femoral head stable compared with prior CT from August 2019. 4. Moderate deformity of the left paracentral pubic symphysis and mild deformity of the anterior left sacrum consistent with prior injury.
[2020-02-28 09:54] VITALS: BP 163/98
== END 2020-02-28 09:53 | disposition home or self-care (01) ==
LOC: ER 03:14
DX: M25.552 Pain in left hip (principal); M79.605 Pain in left leg; M62.81 Muscle weakness (generalized); Z86.73 Personal history of transient ischemic attack (TIA), and cerebral infarction without residual deficits; Z88.2 Allergy status to sulfonamides; Z88.8 Allergy status to other drugs, medicaments and biological substances; Z88.1 Allergy status to other antibiotic agents; I25.2 Old myocardial infarction; I10 Essential (primary) hypertension; Z79.899 Other long term (current) drug therapy; E11.9 Type 2 diabetes mellitus without complications
CPT/HCPCS: 99284

== ENCOUNTER → 2020-11-11 | Outpatient (CLI) | payer MEDICARE, BC ==
--- NOTE | 2020-11-11 15:12 | WOMENS IMAGING REPORT ---
EXAM DESCRIPTION: 3D SCREENING MAMMO LEFT IMAGES COMPLETED DATE/TIME: 11/11/2020 12:54 pm REASON FOR STUDY: ROUTINE SCREENING MAMMOGRAM Z12.31 COMPARISON: 11/02/2019, EXAM PARAMETERS: Standard craniocaudal and mediolateral oblique views of the breast recorded using d igital acquisition and breast tomosynthesis. Read with the assistance of CAD. .[facility] - [employer] Version 9.2 LIMITATIONS: None. FINDINGS: BREAST LATERALITY: left No suspicious masses, suspicious calcifications or architectural distortion. No areas of concern. IMPRESSION: NEGATIVE MAMMOGRAM. BIRADS 1. BREAST DENSITY: b. There are scattered areas of fibroglandular density. BIRAD: ASSESSMENT: 1 Negative RECOMMENDATION: RECOMMENDATION: ROUTINE SCREENING. COMMENT: The patient has been notified of the results by letter per [place] requirements. Additional no tification policies are in place for contacting patient with suspicious or incomplete findings. Quality ID #225: The [employer] recommends an annual screening mammogram for women aged 40 years or over. This facility utilizes a reminder system to ensure that all patients receive reminder letters, and/or direct phone calls for appointments. This includes reminders for routine scr eening mammograms, diagnostic mammograms, or other Breast Imaging Interventions when appropriate. Th is patient will be placed in the appropriate reminder system. TECHNICAL DOCUMENTATION: FINDING NUMBER: (1) ASSESSMENT: (1) JOB ID: [id number] 2010 [employer]- All Rights Reserved Reading location - IP/workstation name: [email or web address]
== END ==
LOC: WI 14:33
PROVIDERS: ATTEND Nurse Practitioner Family
DX: Z12.31 Encounter for screening mammogram for malignant neoplasm of breast (principal)